=== PATIENT | female | born 1970 | race Caucasian/White ===

== ENCOUNTER → 2016-05-10 | Outpatient (CLI) | payer BC ==
[2016-05-10 11:19] LABS: CH 32.3; CHCM 34.8; HCT 45.3 % (34.0-46.0); HDW 2.63; HGB 15.1 gm/dL (11.4-16.0); MCHC 33.3 g/dL (31.0-37.0); MCV 93.3 fL (80.0-100.0); Mean Platelet Volume 8.4; RBC 4.86 m/uL (3.80-5.40); RDW 13.1 % (11.5-15.5); WBC 5.9 k/uL (3.8-10.6)
[2016-05-10 11:24] LABS: Partial Thromboplastin Time 23.8 sec (22.0-30.0); Prothrombin Time 10.4 sec (9.0-12.0)
[2016-05-10 11:51] LABS: ALT 37 U/L (9-52); AST 25 U/L (14-36); Alkaline Phosphatase 82 U/L (38-126); Anion Gap 12 mmol/L; Blood Urea Nitrogen 23 mg/dL (7-17); Calcium 9.8 mg/dL (8.4-10.2); Carbon Dioxide 29 mmol/L (22-30); Chloride 103 mmol/L (98-107); Cholesterol 201 mg/dL (<200); Glucose 108 mg/dL (74-99); HDL Cholesterol 51 mg/dL (40-60); Iron 108 ug/dL (37-170); Magnesium 2.1 mg/dL (1.6-2.3); Non-African American GFR(MDRD) >60 (>60 ml/min/1.73 sqM); Phosphorous 4.6 mg/dL (2.5-4.5); Potassium 4.9 mmol/L (3.5-5.1); Sodium 144 mmol/L (137-145); Total Bilirubin 0.5 mg/dL (0.2-1.3); Total Protein 7.2 g/dL (6.3-8.2); Triglycerides 137 mg/dL (<150)
[2016-05-10 11:58] LABS: Hemoglobin A1C 6.1 % (4.2-6.1)
[2016-05-10 12:02] LABS: % Iron Saturation 33.9 % (20-50); Prealbumin 27 mg/dL (18-36); Total Iron Binding Capacity 319 ug/dL (265-497)
[2016-05-10 13:03] LABS: Vitamin B12 447 pg/mL (239-931)
[2016-05-12 17:35] LABS: Selenium 129 mcg/L (63-160)
== END | disposition home or self-care (01) ==
LOC: LABWHC1 10:33
PROVIDERS: ATTEND Surgery Plastic and Reconstructive Surgery
DX: D50.8 Other iron deficiency anemias (principal); E89.1 Postprocedural hypoinsulinemia; E21.1 Secondary hyperparathyroidism, not elsewhere classified; E44.0 Moderate protein-calorie malnutrition; E55.9 Vitamin D deficiency, unspecified; N19 Unspecified kidney failure; K50.90 Crohn's disease, unspecified, without complications; K76.9 Liver disease, unspecified; E66.01 Morbid (severe) obesity due to excess calories
CPT/HCPCS: 36415; 80053; 80061; 82306; 82525; 82607; 82728; 82746; 83036; 83540; 83550; 83735; 83970; 84100; 84134; 84255; 84425; 84443; 84590; 84630; 85027; 85610; 85730

== ENCOUNTER → 2016-05-12 | Outpatient (CLI) | payer BC ==
--- NOTE | 2016-05-22 20:48 | P.PN ---
Progress Note - Text DATE OF SERVICE: 05/12/2016. CHIEF COMPLAINT: Follow-up sleeve gastrectomy. HISTORY OF PRESENT ILLNESS: Lisa Vázquez is a 45-year-old female who is status post sleeve gastrectomy from 08/14/2015. She is on the verge of being 8 to 9 months out. Her highest weight for her 5 feet 2-1/4 inches frame was 217 pounds. Today she comes in weighing 185 pounds. [place] body weight is 135 pounds. She has only maintained a 32 pound weight loss. Body mass index was reduced from 39.5 down to 33.7. She has lost approximately 4 pounds in roughly 3 to 4 weeks. She also tried doing the two week protein diet. However, she has been taking inadequate abundance of protein. Now she presents for further evaluation and management. Incidentally, she is no longer on any medications related to her blood sugars. Her insulin requirements are now resolved. Now she presents for further evaluation and management. PAST MEDICAL HISTORY: 1. Diabetes, type 2. 2. Gastroesophageal reflux disease. 3. Dyslipidemia. 4. Hypertension. 5. Vertigo. 6. Menopause. 7. Restless leg syndrome. 8. Anxiety. 9. Obstructive sleep apnea. PAST SURGICAL HISTORY: 1. Uterine ablation. 2. Bilateral breast reduction. 3. Left breast lumpectomy. 4. D&C. MEDICATIONS: 1. Effexor. 2. Zantac. 3. Nystatin Powder. 4. Multivitamin. 5. Folic acid. 6. Biotin. ALLERGIES: Note. SOCIAL HISTORY: Lifelong nontobacco user. Has intermittent alcohol use. FAMILY HISTORY: Pertinent for diabetes type 2. No reports of ulcerative colitis or Crohn disease. REVIEW OF SYSTEMS: CONSTITUTIONAL: [place] body weight of 135 pounds. Highest weight of 217 pounds. She weighs 185 pounds. She is 50 pounds overweight. She has lost 32 pounds. Percent excess weight loss is 39% in approximately 9 months. Body mass index reduced and 39.5 down to 33.7. ENDOCRINE: Resolved diabetes type 2. No reports of active thyroid disorder to her knowledge. GASTROINTESTINAL: Gastroesophageal reflux disease. MUSCULOSKELETAL: Has diffuse osteoarthritis. RESPIRATORY:Resolved obstructive sleep apnea. HEENT: No troubles with vision or hearing. CARDIOVASCULAR: History of dyslipidemia as well as hypertension. NEURO: No reports of stroke or seizure disorder. PSYCH: History of anxiety including depression. HEMATOLOGIC: No personal history of deep venous thromboembolic event. PHYSICAL EXAM: VITAL SIGNS: 98.2, 88, 14, 121/78; 5 feet 2-1/4 inches frame is 185 pounds. Body mass index is 33.7. ABDOMEN: No palpable incisional hernias. Obese, soft, nontender. GENERAL: Well-developed, pleasant female in no acute distress. CARDIOVASCULAR: Regular rate, regular rhythm. HEENT: No scleral icterus. Extraocular muscles grossly intact. Moist buccal mucosa. NECK: Supple without lymphadenopathy. CHEST: Nonlabored respirations. MUSCULOSKELETAL: No clubbing, cyanosis, or edema. NEURO: No focal or lateralizing signs. PSYCH: Appropriate affect. Alert and oriented to person, place and time. LABS: Bariatric metabolic panel was reviewed, demonstrating hemoglobin normal at 15.1. INR normal at 1.0. BUN was elevated at 23. Glucose elevated at 108. Hemoglobin A1c is now down from 7.6 down to 6.1. Phosphorus elevated at 4.6. Cholesterol elevated at 201. LDL elevated at 123. Lipase elevated, TSH suppressed at 0.4102. Trace elements within normal limits. ASSESSMENT: 1. Morbid obesity due to excess calories. 2. Body mass index reduced from 39.5 down to 33.7. 3. Diabetes type 2, [id number], improved. 4. Chronic constipation. 5. Panniculitis. 6. Obstructive sleep apnea, chronic, improved. 7. Hypertension without congestive heart failure. 8. Osteoarthritis of the bilateral knees secondary to morbid obesity. 9. Osteoarthritis of the lower back secondary to morbid obesity. 10. Osteoarthritis of the bilateral hips secondary to morbid obesity. 11. Medical noncompliance to dietary regimen following bariatric procedure. 12. Dietary surveillance and counseling. 13. Status post sleeve gastrectomy. 14. Medical noncompliance bariatric regimen. PLAN: 1. On review of her dietary history she is often taking moderate amount of carbohydrates including from fructose and fruit sugars. Her presentation and difficulty with her initial blood sugars are highly suspicious for insulin resistance. 2. I have asked her to adjust her diet whereby she will do carbohydrate restriction of no more than 100 grams of carbs daily. 3. Recommend at least 25 grams fiber daily to also help with her blood sugar spikes. 4. Alternatives to a 2 week protein diet also includes low carbohydrates intake of 20 grams. 5. I have recommended follow-up in approximately 4 weeks. ADDENDUM: With her history of suppressed TSH, she is at risk for her hyperthyroidism which will explain her hair loss despite her nutritional intake.
== END | disposition home or self-care (01) ==
CPT/HCPCS: 99211

== ENCOUNTER → 2016-06-09 | Outpatient (CLI) | payer BC ==
[2016-06-09 09:52] VITALS: BP 136/79; PULSE 94; RESP 16; TEMP 98.3; BMI 32.5
--- NOTE | 2016-07-31 19:55 | P.PN ---
Progress Note - Text DATE OF SERVICE: 06/09/2016 CHIEF COMPLAINT: Followup sleeve gastrectomy. HISTORY OF PRESENT ILLNESS: Lisa Vázquez is a 45-year-old female, status post sleeve gastrectomy on 08/14/2015. At her height of 5 feet 2-1/4 inch frame she had weighed as much as 217 pounds. Today she comes in weighing 179 pounds. Her ideal body weight is 135 pounds. She has lost 38 pounds. Percent excess weight loss is 46% after 9 to 10 months. She has had some struggles with weight loss, including with her diet. After a close bariatric followup, she had has lost 6 pounds in a month. Body mass index is reduced from 39.5 down to 32.6. Total BMI point reduction is 7 points. At present, she is only 44 pounds overweight. She reports complete resolution of her diabetes. Separately, she reports moderate panniculitis. Now she presents for further evaluation and management. PAST MEDICAL HISTORY: 1. Diabetes type 2, not insulin dependent, resolved. 2. Gastroesophageal reflux disease. 3. Dyslipidemia. 4. Hypertension. 5. Vertigo. 6. Menopause. 7. Restless leg syndrome. 8. Anxiety. 9. Obstructive sleep apnea. PAST SURGICAL HISTORY: 1. Uterine ablation. 2. Bilateral breast reduction. 3. Left breast lumpectomy. 4. D&C. 5. Status post sleeve gastrectomy. MEDICATIONS: 1. Folic acid. 2. Biotin. 3. Effexor. 4. Zantac. 5. Nystatin powder. ALLERGIES: Note. SOCIAL HISTORY: Lifelong nontobacco user. Has intermittent alcohol use. FAMILY HISTORY: Pertinent for diabetes type 2. No reports of ulcerative colitis or Crohn disease. REVIEW OF SYSTEMS: CONSTITUTIONAL: Recent weight loss was 6 pounds in one month. Total weight loss of 38 pounds in 10 months. Body mass index reduced from 39.5 down to 32.6. Percent excess weight loss of 46%. [place] body weight of 135 pounds. ENDOCRINE: Resolved diabetes type 2. No reports of active thyroid disorder to her knowledge. GASTROINTESTINAL: History of gastroesophageal reflux disease controlled with Zantac. MUSCULOSKELETAL: Has diffuse osteoarthritis. RESPIRATORY:Resolved obstructive sleep apnea. HEENT: No troubles with vision or hearing. CARDIOVASCULAR: History of dyslipidemia as well as hypertension. NEURO: No reports of stroke or seizure disorder. PSYCH: History of anxiety including depression. HEMATOLOGIC: No personal history of deep venous thromboembolic event. PHYSICAL EXAM: VITAL SIGNS: 98.3, 94, 16, 136/79, 179 pounds, 5 feet 2-1/4 inch frame, body mass index 32.6. ABDOMEN: Soft. No palpable incisional hernias. Pannus extends over pubis by 6 cm with mild hyperemia consistent with panniculitis. GENERAL: Well-developed, pleasant female in no acute distress. CARDIOVASCULAR: Regular rate, regular rhythm. HEENT: No scleral icterus. Extraocular muscles grossly intact. Moist buccal mucosa. NECK: Supple without lymphadenopathy. CHEST: Nonlabored respirations. MUSCULOSKELETAL: No clubbing, cyanosis, or edema. NEURO: No focal or lateralizing signs. PSYCH: Appropriate affect. Alert and oriented to person, place and time. LABS: Bariatric metabolic panel was reviewed, consistent with BUN elevated at 23. Glucose was elevated at 108. Hemoglobin A1c was moderate reduced from 7.6 down to 6.1. Phosphorus was elevated at 4.6. Cholesterol elevated at 201. LDL elevated at 123. Thyroid-stimulating hormone was suppressed at 0.412. ASSESSMENT: 1. Morbid obesity due to excess calories. 2. Body mass index reduced from 39.5 down to 32.6. 3. Diabetes type 2, [id number], improved. 4. Chronic constipation. 5. Panniculitis. 6. Obstructive sleep apnea, chronic, improved. 7. Hypertension without congestive heart failure. 8. Osteoarthritis of the bilateral knees secondary to morbid obesity. 9. Osteoarthritis of the lower back secondary to morbid obesity. 10. Osteoarthritis of the bilateral hips secondary to morbid obesity. 11. Medical noncompliance to dietary regimen following bariatric procedure. 12. Dietary surveillance and counseling. 13. Status post sleeve gastrectomy. 14. Medical noncompliance bariatric regimen. 15. Insulin resistance. PLAN: 1. She had responded well to a very strict low-carb diet. This confirms her insulin resistance. 2. We have reviewed her labs whereby her thyroid stimulating hormone is suppressed. Will re-evaluate. 3. On exam, she has panniculitis and additional prescription for nystatin powder is written on her behalf. 4. She is evaluating for a panniculectomy; however, she still will benefit from additional weight loss. 5. Recommend followup at year anniversary for July 2016.
== END | disposition home or self-care (01) ==
LOC: BARWHC3 09:43
PROVIDERS: ATTEND Surgery Plastic and Reconstructive Surgery
DX: Z48.815 Encounter for surgical aftercare following surgery on the digestive system (principal); Z79.899 Other long term (current) drug therapy; E66.01 Morbid (severe) obesity due to excess calories; Z68.32 Body mass index [BMI] 32.0-32.9, adult; K59.09 Other constipation; M79.3 Panniculitis, unspecified; I10 Essential (primary) hypertension; M17.0 Bilateral primary osteoarthritis of knee; M16.0 Bilateral primary osteoarthritis of hip; M47.816 Spondylosis without myelopathy or radiculopathy, lumbar region; Z98.84 Bariatric surgery status; Z91.11 Patient's noncompliance with dietary regimen; E88.81 Metabolic syndrome and other insulin resistance; K21.9 Gastro-esophageal reflux disease without esophagitis; F41.9 Anxiety disorder, unspecified; F32.9 Major depressive disorder, single episode, unspecified
CPT/HCPCS: 99211

== ENCOUNTER → 2017-05-09 | Outpatient (CLI) | payer BC ==
--- NOTE | 2017-05-10 11:42 | MM ---
Reason for exam: screening (asymptomatic). Last mammogram was performed 2 years and 9 months ago. History: Family history of premenopausal breast cancer in grandmother. Reductions of both breasts, April 12, 2005. Physical Findings: A clinical breast exam by your physician is recommended on an annual basis and results should be correlated with mammographic findings. MG 3D Screening Mammo W/Cad Bilateral CC and MLO view(s) were taken. Prior study comparison: August 12, 2014, bilateral MG diagnostic mammo w CAD GRADY. There are scattered fibroglandular densities. No suspicious abnormality. No significant changes when compared with prior studies. ASSESSMENT: Negative, BI-RAD 1 RECOMMENDATION: Routine screening mammogram of both breasts in 1 year.
== END | disposition home or self-care (01) ==
LOC: RADMAMWWP 11:18
PROVIDERS: ATTEND Obstetrics & Gynecology
DX: Z12.31 Encounter for screening mammogram for malignant neoplasm of breast (principal)
CPT/HCPCS: 77063; 77067

== ENCOUNTER → 2017-08-22 | Outpatient (CLI) | payer BC ==
[2017-08-22 10:43] LABS: Basophils % (A) 1 %; Eosinophils # (A) 0.1 k/uL (0-0.7); Eosinophils % (A) 2 %; HCT 44.4 % (34.0-46.0); Lymphocytes # (A) 2.4 k/uL (1.0-4.8); Lymphocytes % (A) 41 %; MCH 30.6 pg (25.0-35.0); MCHC 33.9 g/dL (31.0-37.0); MCV 90.4 fL (80.0-100.0); Monocytes # (A) 0.3 k/uL (0-1.0); Monocytes % (A) 5 %; Neutrophils # (A) 2.9 k/uL (1.3-7.7); Neutrophils % (A) 49 %; Platelet Count 240 k/uL (150-450); RBC 4.91 m/uL (3.80-5.40); RDW 12.8 % (11.5-15.5); WBC 5.8 k/uL (3.8-10.6)
[2017-08-22 11:16] LABS: ALT 27 U/L (9-52); AST 19 U/L (14-36); Albumin 4.3 g/dL (3.5-5.0); Alkaline Phosphatase 87 U/L (38-126); Anion Gap 13 mmol/L; Blood Urea Nitrogen 18 mg/dL (7-17); Calcium 9.6 mg/dL (8.4-10.2); Carbon Dioxide 28 mmol/L (22-30); Chloride 105 mmol/L (98-107); Cholesterol 197 mg/dL (<200); Creatine Kinase 42 U/L (30-135); Glucose 155 mg/dL (74-99); HDL Cholesterol 54 mg/dL (40-60); LDL Cholesterol,Calculated 118 mg/dL (0-99); Potassium 4.2 mmol/L (3.5-5.1); Sodium 146 mmol/L (137-145); Total Bilirubin 0.4 mg/dL (0.2-1.3); Total Protein 6.9 g/dL (6.3-8.2); Triglycerides 127 mg/dL (<150)
[2017-08-22 15:57] LABS: Iron Saturation 32.81 (12.00-45.00)
[2017-08-22 16:06] LABS: Vitamin D 25 Hydroxy 47.5 ng/mL (30.0-100.0)
[2017-08-24 06:37] LABS: Vitamin E (Alpha Tocopherol) 1261 ug/dL (500-1800)
[2017-08-24 06:38] LABS: Vitamin A 54 ug/dL (38-106)
[2017-08-24 06:52] LABS: Vitamin B1 54 ug/L (38-122)
== END | disposition home or self-care (01) ==
LOC: LABWHC1 09:49
PROVIDERS: ATTEND Family Medicine
DX: E78.00 Pure hypercholesterolemia, unspecified (principal)
CPT/HCPCS: 36415; 80053; 80061; 82306; 82550; 82607; 82728; 83540; 83550; 84425; 84446; 84590; 85025

== ENCOUNTER → 2017-09-04 | Outpatient (CLI) | payer BC ==
[2017-09-04 12:52] LABS: Blood Urea Nitrogen 10 mg/dL (7-17)
--- NOTE | 2017-09-04 14:36 | CT ---
EXAMINATION TYPE: CT abdomen pelvis w con DATE OF EXAM: 09/04/2017 HISTORY: Pelvic and low back pain CT DLP: 1637.6mGycm Automated Exposure Control for Dose Reduction was Utilized. CONTRAST: CT scan of the abdomen and pelvis is performed with oral and with IV Contrast, patient injected with 100 mL of Isovue 300. COMPARISON: CT abdomen and pelvis August 10, 2013. FINDINGS: LUNG BASES: No significant abnormality is appreciated. LIVER/GB: No significant abnormality is appreciated. PANCREAS: No significant abnormality is seen. SPLEEN: Spleen remains enlarged measuring 14.2 cm long axis axial image 20. ADRENALS: No significant abnormality is seen. KIDNEYS: No significant abnormality is seen. BOWEL: There is interval gastric sleeve surgery noted. Oral contrast reaches level of distal sigmoid colon. There are few diverticula scattered throughout the colon. There is moderate wall thickening wi th mild to moderate ill-defined fluid and fat stranding surrounding proximal sigmoid colon in the lef t upper pelvis near axial image 69. CT findings are consistent with acute diverticulitis at this leve l. No well-formed fluid collection or abscess is seen. Normal-appearing appendix is seen from base of cecum. UTERUS/ADNEXA: Anteverted uterus is present. LYMPH NODES: No greater than 1cm abdominal or pelvic lymph nodes are appreciated. OSSEOUS STRUCTURES: No significant abnormality is seen. OTHER: No significant additional abnormality is seen. IMPRESSION: CT findings consistent with a mild to moderate acute diverticulitis involving the proxima l sigmoid colon in the left upper pelvis. No free air or well-formed drainable abscess is seen.
== END | disposition home or self-care (01) ==
LOC: RADCTMAIN 11:58
PROVIDERS: ATTEND Family Medicine
DX: K57.30 Diverticulosis of large intestine without perforation or abscess without bleeding (principal)
CPT/HCPCS: 82565; 84520; 74177; 36415; Q9967

== ENCOUNTER 2018-02-21 06:43 | Day surgery (SDC) | payer BC ==
[2018-02-19 09:54] VITALS: BMI 35.9
[~2018-02-21 06:43] MED LIST: HYDROmorphone 1 MG/ML 1 ML SYRINGE IVP PRN; LACTATED RINGERS 1,000 ML IV SCH
[2018-02-21] MEDS ORDERED: LIDOCAINE 1% 20 ML VIAL (10MG/ML) FOR IV START INTRADERMA ONE (07:16)
[2018-02-21] MEDS ORDERED: ONDANSETRON 4 MG/2 ML VIAL IVP ONE (07:17)
[2018-02-21 07:19] LABS: Glucose,Whole Blood 147 mg/dL (75-99)
[2018-02-21 07:20] VITALS: TEMP 97
[2018-02-21] MEDS ORDERED: PROPOFOL 10 MG/ML 20 ML VIAL IV ONE (07:55)
--- NOTE | 2018-02-21 08:17 | P.PCN ---
Date of Procedure: 02/21/18 Procedure(s) Performed: BRIEF HISTORY: Patient is a 47-year-old pleasant-white female, scheduled for an elective colonoscopy as a part of value should of intermittent rectal bleeding. PROCEDURE PERFORMED: Colonoscopy with snare polypectomy. PREOPERATIVE DIAGNOSIS: Rectal bleeding. IV sedation per Anesthesia. PROCEDURE: After informed consent was obtained, the patient, was brought into the endoscopy unit. IV sedation was administered by Anesthesia under continuous monitoring. Digital rectal examination was normal. Initially the Olympus CF- 160 flexible video colonoscope was then inserted in the rectum, gradually advanced into the cecum without any difficulty. Careful examination was performed as the scope was gradually being withdrawn. Ileocecal valve and the appendiceal orifice were visualized and appeared normal. Prep was excellent. In the base of the cecum there was a 7 mm sessile polyp removed by snare polypectomy. There was a 1 cm polyp in the ascending colon that was removed by snare polypectomy. Mucosa of the cecum, ascending colon, transverse colon, descending colon, sigmoid colon, and rectum appeared normal. Retroflexion was performed in the rectum and small internal hemorrhoids were seen. The patient tolerated the procedure well. IMPRESSION: 7 mm sessile cecal polyp status post polypectomy 1 cm ascending colon polyp status post snare polypectomy. Small internal hemorrhoids RECOMMENDATIONS: Findings of this examination were discussed with the patient as well as her family. She was advised to follow with the biopsy results. If the biopsy shows adenoma, she can have a repeat colonoscopy in 3 years from now..
[2018-02-21 08:40] VITALS: BP 146/87; PULSE 63; RESP 18
== END 2018-02-21 08:51 | disposition home or self-care (01) ==
LOC: ORWHC2ENDO 06:43
PROVIDERS: ATTEND Internal Medicine Gastroenterology
DX: D12.2 Benign neoplasm of ascending colon (principal); K62.5 Hemorrhage of anus and rectum; K63.5 Polyp of colon; K64.8 Other hemorrhoids; G47.33 Obstructive sleep apnea (adult) (pediatric); E11.9 Type 2 diabetes mellitus without complications; I10 Essential (primary) hypertension; E78.5 Hyperlipidemia, unspecified; Z88.8 Allergy status to other drugs, medicaments and biological substances; Z79.84 Long term (current) use of oral hypoglycemic drugs; Z79.899 Other long term (current) drug therapy
CPT/HCPCS: 81025; 88305; 45385; J2405; J2704

== ENCOUNTER 2018-05-31 17:43 | Emergency (ER) | payer BC ==
[2018-05-31 17:51] VITALS: TEMP 98.3
[2018-05-31] MEDS ORDERED: CLINDAMYCIN 600 MG in DEXTROSE 5% IN WATER 50 ML IVPB STA ×2 (18:23)
[2018-05-31] MEDS ORDERED: MORPHINE SULFATE 4 MG/ML SYRINGE IVP STA ×2 (18:25→20:23)
[2018-05-31] MEDS ORDERED: ONDANSETRON 4 MG/2 ML VIAL IVP STA (18:25)
[2018-05-31 18:54] LABS: Basophils # (A) 0.1 k/uL (0-0.2); Basophils % (A) 1 %; Eosinophils # (A) 0.2 k/uL (0-0.7); Eosinophils % (A) 1 %; HCT 49.3 % (34.0-46.0); HGB 16.5 gm/dL (11.4-16.0); Lymphocytes # (A) 3.4 k/uL (1.0-4.8); Lymphocytes % (A) 31 %; MCH 31.3 pg (25.0-35.0); MCHC 33.5 g/dL (31.0-37.0); MCV 93.3 fL (80.0-100.0); Mean Platelet Volume 7.2; Monocytes # (A) 0.5 k/uL (0-1.0); Monocytes % (A) 4 %; Neutrophils # (A) 6.8 k/uL (1.3-7.7); Neutrophils % (A) 62 %; Platelet Count 279 k/uL (150-450); RBC 5.28 m/uL (3.80-5.40); RDW 12.7 % (11.5-15.5)
[2018-05-31 19:15] LABS: Anion Gap 10 mmol/L; Blood Urea Nitrogen 16 mg/dL (7-17); Carbon Dioxide 28 mmol/L (22-30); Chloride 104 mmol/L (98-107); Glucose 147 mg/dL (74-99); Potassium 4.5 mmol/L (3.5-5.1); Sodium 142 mmol/L (137-145)
--- NOTE | 2018-05-31 19:23 | ED ---
General Adult HPI - General Chief complaint: Skin/Abscess/Foreign Body Stated complaint: Swollen face- sent by DR Time Seen by Provider: 05/31/18 18:13 Source: patient, RN notes reviewed Mode of arrival: ambulatory Limitations: no limitations - History of Present Illness Initial comments: 47-year-old female presents emergency Department chief complaint of left-sided facial swelling. Patient states that she had dental work on the left upper side running and this morning. Patient states that she was getting numb and states that she had increase in pain at that time. Patient states almost 1520 minutes after she administered swelling. Patient states her dentist told her that he may have struck her plexus and causing a hematoma. Patient states that she had increasing pain throughout the day was not sent home with pain medication seen by PCPs office and felt that there was some crackling towards her jaw and concern for subcutaneous air or maxillary infiltrate. She states that she cannot see her left eye secondary to swelling. - Related Data Home Medications Medication Instructions Recorded Confirmed Venlafaxine HCl [Effexor Xr] 225 mg PO QAM 04/29/15 05/31/18 ALPRAZolam [Xanax] 0.25 mg PO DAILY PRN 02/19/18 05/31/18 Acetaminophen [Tylenol] 325 mg PO Q4H PRN 02/19/18 05/31/18 Meclizine HCl 25 mg PO DAILY PRN 02/19/18 05/31/18 metFORMIN HCL 1,000 mg PO BID 02/19/18 05/31/18 Amoxic-Pot Clav 875-125Mg 1 tab PO Q12HR 05/31/18 05/31/18 [Augmentin 875-125] Previous Rx's Medication Instructions Recorded Clindamycin HCl 300 mg PO Q8HR #30 cap 05/31/18 HYDROcodone/APAP 7.5-325MG [[place] 1 tab PO Q6HR PRN 3 Days #12 tab 05/31/18 7.5-325] Allergies Allergy/AdvReac Type Severity Reaction Status Date / Time milk AdvReac CONGESTIONS, Verified 05/31/18 18:25 SINUS DRAINAGE phenazopyridine AdvReac Nausea & Verified 05/31/18 18:25 [From Pyridium] Vomiting Review of Systems ROS Statement: Those systems with pertinent positive or pertinent negative responses have been documented in the HPI. ROS Other: All systems not noted in ROS Statement are negative. Past Medical History Past Medical History: Diabetes Mellitus, GERD/Reflux, Pneumonia, Sleep Apnea/ CPAP/BIPAP Additional Past Medical History / Comment(s): SEIZURE X1 ([employer]), PCOS. , Vertigo, RLS. , PNEUMONIA (MAR 2015),does not use BI PAP MACHINE History of Any Multi-Drug Resistant Organisms: None Reported Past Surgical History: Bariatric Surgery, Breast Surgery, Uterine Ablation Additional Past Surgical History / Comment(s): Breast Reduction; Lump Removed from LT breast, BENIGN. D&C., COLONOSCOPY, EGD (05/2015). Gastric Sleeve 08/15/15 Past Anesthesia/Blood Transfusion Reactions: Previous Problems w/ Anesthesia, Family History of Problems w/ Anesthesia, Motion Sickness Additional Past Anesthesia/Blood Transfusion Reaction / Comment(s): Takes a long time to come of anesthesia X1 with breast reduction surgery. (REFUSES BLOOD PRODUCTS)-personal preference. DTR has PONV Past Psychological History: Anxiety, Depression Smoking Status: Never smoker Past Alcohol Use History: Occasional Past Drug Use History: None Reported - Past Family History Mother Additional Family Medical History / Comment(s): Benign tumor in uterus, removed. Father Family Medical History: Cancer, CVA/TIA, Diabetes Mellitus Additional Family Medical History / Comment(s): leukemia of spleen, hemchromatosis (to much iron in blood), neuropathy, back surgery fushions. MELANOMA. General Exam Limitations: no limitations General appearance: alert, in no apparent distress Head exam: Present: atraumatic, normocephalic, normal inspection Eye exam: Present: PERRL, EOMI, periorbital swelling (Moderate left-sided unable to open left eye). Absent: normal appearance, scleral icterus, conjunctival injection ENT exam: Present: mucous membranes moist, TM's normal bilaterally, normal external ear exam, other (Moderate left-sided facial swelling). Absent: normal exam, normal oropharynx Neck exam: Present: normal inspection, full ROM. Absent: tenderness, meningismus, lymphadenopathy Respiratory exam: Present: normal lung sounds bilaterally. Absent: respiratory distress, wheezes, rales, rhonchi, stridor Cardiovascular Exam: Present: regular rate, normal rhythm, normal heart sounds. Absent: systolic murmur, diastolic murmur, rubs, gallop, clicks Skin exam: Present: warm, dry, intact, normal color. Absent: rash Course Vital Signs 05/31/18 17:47 Temperature 98.3 F Pulse Rate 77 Respiratory 18 Rate Blood Pressure 134/82 O2 Sat by Pulse 98 Oximetry Medical Decision Making - Medical Decision Making 47-year-old female presented for left-sided facial swelling after dental procedure today. Patient did have lab work, CT. Shows extensive soft tissue air on the left. I did discuss the case with on-call oral surgeon Dr. Gonzalez was states this is most likely just from the procedure. He did recommend patient continue clindamycin 300 mg 3 times a day at home and to follow-up. She did advise her to sleep at a minimum 30 upright. Patient will be discharged with pain medication return parameters were discussed. - Lab Data Result diagrams: 05/31/18 18:05 05/31/18 18:05 Lab Results 05/31/18 05/31/18 Range/Units 18:05 18:05 WBC 11.0 H (3.8-10.6) k/uL RBC 5.28 (3.80-5.40) m/uL Hgb 16.5 H (11.4-16.0) gm/dL Hct 49.3 H (34.0-46.0) % MCV 93.3 (80.0-100.0) fL MCH 31.3 (25.0-35.0) pg MCHC 33.5 (31.0-37.0) g/dL RDW 12.7 (11.5-15.5) % Plt Count 279 (150-450) k/uL Neutrophils % 62 % Lymphocytes % 31 % Monocytes % 4 % Eosinophils % 1 % Basophils % 1 % Neutrophils # 6.8 (1.3-7.7) k/uL Lymphocytes # 3.4 (1.0-4.8) k/uL Monocytes # 0.5 (0-1.0) k/uL Eosinophils # 0.2 (0-0.7) k/uL Basophils # 0.1 (0-0.2) k/uL Sodium 142 (137-145) mmol/L Potassium 4.5 (3.5-5.1) mmol/L Chloride 104 (98-107) mmol/L Carbon Dioxide 28 (22-30) mmol/L Anion Gap 10 mmol/L BUN 16 (7-17) mg/dL Creatinine 0.61 (0.52-1.04) mg/dL Est GFR (CKD-EPI)AfAm >90 (>60 ml/min/1.73 sqM) Est GFR (CKD-EPI)NonAf >90 (>60 ml/min/1.73 sqM) Glucose 147 H (74-99) mg/dL Calcium 10.0 (8.4-10.2) mg/dL Disposition Clinical Impression: Swelling of left side of face, Soft tissue emphysema, Pain, dental Disposition: HOME SELF-CARE Condition: Stable Instructions (If sedation given, give patient instructions): Toothache (ED) Additional Instructions: Please return to the Emergency Department if symptoms worsen or any other concerns. Prescriptions: Clindamycin HCl 300 mg PO Q8HR #30 cap HYDROcodone/APAP 7.5-325MG [[place] 7.5-325] 1 tab PO Q6HR PRN 3 Days #12 tab PRN Reason: Pain Is patient prescribed a controlled substance at d/c from ED?: Yes When asked, does pt state using other controlled substances?: No If prescribed controlled substance>3 days was MAPS reviewed?: Prescribed <3 Days If opioid is for acute pain is fill amount 7 days or less?: Yes If Rx opioid, was Start Talking consent form obtained?: Yes Referrals: Glynn Mueller MD [Primary Care Provider] - 1-2 days Jeff Gonzalez DDS [STAFF PHYSICIAN] - 1-2 days Time of Disposition: 20:30
--- NOTE | 2018-05-31 19:52 | CT ---
EXAMINATION TYPE: CT facial bones w con DATE OF EXAM: 05/31/2018 COMPARISON: None HISTORY: Swelling of LT side of face. PT states swelling started after numbing injection by dentist f or a procedure CT DLP: 477.1 mGycm Automated exposure control for dose reduction was used. CONTRAST: CT scan of the facial bones is performed with IV Contrast, patient injected with 300 mL of Isovue 300 . TECHNIQUE: CT scan of the sinuses is performed without contrast, axial images are obtained, coronal r eformatted images are also reviewed. There is extensive soft tissue air on the left side of the face extending into the periorbital region left temporal region and left submandibular region. I see no discrete fluid collection. The mandibul ar ring is intact. The maxilla is intact. There is a large mucus retention cyst right maxillary sinus . The orbital margins are intact. There is no evidence of retro-orbital mass. There is mild mucosal t hickening at the floor of the left maxillary sinus. I see no pathologic enhancement. IMPRESSION: Extensive left-sided soft tissue air. The source of the areas not demonstrated. No fracture. No evidence of an abscess. Maxillary sinusitis.
[2018-05-31 20:39] VITALS: BP 128/77; PULSE 72; RESP 16
== END 2018-05-31 20:39 | disposition home or self-care (01) ==
LOC: EC 17:43
DX: T81.82XA Emphysema (subcutaneous) resulting from a procedure, initial encounter (principal); K08.89 Other specified disorders of teeth and supporting structures; E11.9 Type 2 diabetes mellitus without complications; F32.9 Major depressive disorder, single episode, unspecified; F41.9 Anxiety disorder, unspecified; Z88.8 Allergy status to other drugs, medicaments and biological substances; Z91.011 Allergy to milk products; Z79.84 Long term (current) use of oral hypoglycemic drugs; Z79.899 Other long term (current) drug therapy; Z87.01 Personal history of pneumonia (recurrent)
CPT/HCPCS: 36415; 80048; 85025; 87040; 70487; 99284; 96365; 96375 ×2; 96376; J2270; J2405; Q9967

== ENCOUNTER → 2018-11-28 | Outpatient (CLI) | payer BC ==
--- NOTE | 2018-11-29 13:53 | MM ---
Reason for exam: screening (asymptomatic). Last mammogram was performed 1 year and 7 months ago. History: Family history of premenopausal breast cancer in grandmother. Reductions of both breasts, April 12, 2005. Physical Findings: A clinical breast exam by your physician is recommended on an annual basis and results should be correlated with mammographic findings. MG 3D Screening Mammo W/Cad Bilateral CC and MLO view(s) were taken. Prior study comparison: May 09, 2017, bilateral MG 3d screening mammo w/cad. August 12, 2014, bilateral MG diagnostic mammo w CAD GRADY. There are scattered fibroglandular densities. Benign appearing bilateral calcifications. No significant changes when compared with prior studies. ASSESSMENT: Benign, BI-RAD 2 RECOMMENDATION: Routine screening mammogram of both breasts in 1 year.
== END | disposition home or self-care (01) ==
LOC: RADMAMWWP 08:23
PROVIDERS: ATTEND Obstetrics & Gynecology
DX: Z12.31 Encounter for screening mammogram for malignant neoplasm of breast (principal); Z80.3 Family history of malignant neoplasm of breast
CPT/HCPCS: 77063; 77067

== ENCOUNTER 2020-02-23 11:19 | Emergency (ER) | payer BC ==
[2020-02-23 11:31] VITALS: RESP 18; TEMP 98.5
[2020-02-23] MEDS ORDERED: SODIUM CHLORIDE 0.9% 1,000 ML IV STA (11:55)
[2020-02-23] MEDS ORDERED: KETOROLAC 15 MG/ML 1 ML VIAL IVP STA (11:55)
--- NOTE | 2020-02-23 11:57 | ED ---
Abdominal Pain HPI - General Chief Complaint: Abdominal Pain Stated Complaint: abdominal pain Time Seen by Provider: 02/23/20 11:33 Source: patient Mode of arrival: ambulatory Limitations: no limitations - History of Present Illness Initial Comments: Patient is a 49-year-old female presenting to the emergency Department with complaints of left lower quadrant pain that started last night. She does have a history of diverticulitis and feels somewhat similar to that. She also has history of gastric sleeve and they did find some adhesions during that surgery. She states she noticed the pain early in the evening yesterday and she feels like it has been coming worse. She states when she has still the pain is tolerable but when she tries to move around the pain increases. She denies any fevers. She denies any nausea, vomiting. She states her stool is more loose than usual. There is no blood in the stool. She denies any chest pain, shortness of breath, cough. She is no further complaints at this time. Upon arrival to the ER her vitals are stable. - Related Data Home Medications Medication Instructions Recorded Confirmed Meclizine HCl 25 mg PO TID PRN 02/19/18 02/23/20 Canagliflozin/Metformin HCl 1 tab PO BID 02/23/20 02/23/20 [Invokamet 150-1,000 mg Tablet] Clotrimazole/Betameth Cream 1 applic TOPICAL BID 02/23/20 02/23/20 [Lotrisone] Dulaglutide [Trulicity] 1.5 mg SQ ACOSTA 02/23/20 02/23/20 Venlafaxine HCl ER [Effexor Xr] 225 mg PO DAILY 02/23/20 02/23/20 Previous Rx's Medication Instructions Recorded Amoxicillin/Potassium Clav 1 tab PO BID 7 Days #14 tab 02/23/20 [Augmentin 875-125 Tablet] Ketorolac [Toradol] 10 mg PO Q8HR #10 tab 02/23/20 Allergies Allergy/AdvReac Type Severity Reaction Status Date / Time milk AdvReac CONGESTIONS, Verified 02/23/20 13:03 SINUS DRAINAGE phenazopyridine AdvReac Nausea & Verified 02/23/20 13:03 [From Pyridium] Vomiting Review of Systems ROS Statement: Those systems with pertinent positive or pertinent negative responses have been documented in the HPI. ROS Other: All systems not noted in ROS Statement are negative. Past Medical History Past Medical History: Diabetes Mellitus, GERD/Reflux, Pneumonia, Sleep Apnea/CPAP/BIPAP Additional Past Medical History / Comment(s): SEIZURE X1 ([employer]), PC OS. , Vertigo, RLS. , PNEUMONIA (MAR 2015),does not use BI PAP MACHINE History of Any Multi-Drug Resistant Organisms: None Reported Past Surgical History: Bariatric Surgery, Breast Surgery, Uterine Ablation Additional Past Surgical History / Comment(s): Breast Reduction; Lump Removed from LT breast, BENIGN. D&C., COLONOSCOPY, EGD (05/2015). Gastric Sleeve 08/15/15 Past Anesthesia/Blood Transfusion Reactions: Previous Problems w/ Anesthesia, Family History of Problems w/ Anesthesia, Motion Sickness Additional Past Anesthesia/Blood Transfusion Reaction / Comment(s): Takes a long time to come of anesthesia X1 with breast reduction surgery. (REFUSES BLOOD PRODUCTS)-personal preference. DTR has PONV Past Psychological History: Anxiety, Depression Smoking Status: Former smoker Past Alcohol Use History: Occasional Past Drug Use History: None Reported - Past Family History Mother Additional Family Medical History / Comment(s): Benign tumor in uterus, removed. Father Family Medical History: Cancer, CVA/TIA, Diabetes Mellitus Additional Family Medical History / Comment(s): leukemia of spleen, hemchromatosis (to much iron in blood), neuropathy, back surgery fushions. MELANOMA. General Exam - General Exam Comments Initial Comments: GENERAL: Patient is well-developed and well-nourished. Patient is nontoxic and in no acute distress. HEAD: Atraumatic, normocephalic. EYES: Pupils equal round and reactive to light, extraocular movements intact, sclera anicteric, conjunctiva are normal. Eyelids were unremarkable. ENT: TMs normal, nares patent, oropharynx clear without exudates. Moist mucous membranes. NECK: Normal range of motion, supple without lymphadenopathy or JVD. LUNGS: Unlabored respirations. Breath sounds clear to auscultation bilaterally and equal. No wheezes rales or rhonchi. HEART: Regular rate and rhythm without murmurs, rubs or gallops. ABDOMEN: Tender to palpation of the left side of the abdomen, left lower quadrant. Soft, normoactive bowel sounds. No guarding, no rebound. No masses appreciated. : Deferred MUSCULOSKELETAL: Normal extremities with adequate strength and normal range of motion, no pitting or edema. No clubbing or cyanosis. NEUROLOGICAL: Patient is alert and oriented x 3. Motor and sensory are also intact. Cranial nerves II through XII grossly intact. Symmetrical smile. Normal speech, normal gait. PSYCH: Normal mood, normal affect. SKIN: Warm, Dry, normal turgor, no rashes or lesions noted. Limitations: no limitations Course Vital Signs 02/23/20 02/23/20 11:27 13:32 Temperature 98.5 F Pulse Rate 102 H 80 Respiratory 18 18 Rate Blood Pressure 134/87 134/86 O2 Sat by Pulse 99 Oximetry Medical Decision Making - Medical Decision Making Patient is a 49-year-old female here with left lower quadrant pain since yesterday. She does have a history of diverticulitis and this feels similar. Her vitals are stable. Labs revealed mild leukocytosis, lipase is normal, lactic acid is normal. Urine shows no evidence of infection, 4+ glucose, she does have history of diabetes. CT of the abdomen shows mild diverticulitis, no other acute abnormalities. Patient was given fluids and pain control has been resting comfortably. I discussed these findings with the patient. Patient will be started on Augmentin and I will also send her some Toradol for pain. Patient is stable for discharge. Strict return parameters were discussed with the patient and she verbalized understanding. Case discussed with Dr. Corbett. - Lab Data Result diagrams: 02/23/20 11:57 02/23/20 11:57 Lab Results 02/23/20 02/23/20 02/23/20 Range/Units 11:57 11:57 11:57 WBC 11.2 H (3.8-10.6) k/uL RBC 5.10 (3.80-5.40) m/uL Hgb 16.5 H (11.4-16.0) gm/dL Hct 48.7 H (34.0-46.0) % MCV 95.4 (80.0-100.0) fL MCH 32.4 (25.0-35.0) pg MCHC 34.0 (31.0-37.0) g/dL RDW 12.1 (11.5-15.5) % Plt Count 243 (150-450) k/uL Neutrophils % 59 % Lymphocytes % 32 % Monocytes % 5 % Eosinophils % 1 % Basophils % 1 % Neutrophils # 6.6 (1.3-7.7) k/uL Lymphocytes # 3.6 (1.0-4.8) k/uL Monocytes # 0.6 (0-1.0) k/uL Eosinophils # 0.1 (0-0.7) k/uL Basophils # 0.1 (0-0.2) k/uL Sodium 140 (137-145) mmol/L Potassium 4.2 (3.5-5.1) mmol/L Chloride 106 (98-107) mmol/L Carbon Dioxide 25 (22-30) mmol/L Anion Gap 9 mmol/L BUN 7 (7-17) mg/dL Creatinine 0.63 (0.52-1.04) mg/dL Est GFR (CKD-EPI)AfAm >90 (>60 ml/min/1.73 sqM) Est GFR (CKD-EPI)NonAf >90 (>60 ml/min/1.73 sqM) Glucose 112 H (74-99) mg/dL Plasma Lactic Acid Eliot (0.7-2.0) mmol/L Calcium 9.9 (8.4-10.2) mg/dL Total Bilirubin 0.6 (0.2-1.3) mg/dL AST 24 (14-36) U/L ALT 21 (4-34) U/L Alkaline Phosphatase 79 (38-126) U/L Total Protein 7.2 (6.3-8.2) g/dL Albumin 4.4 (3.5-5.0) g/dL Amylase 58 (30-110) U/L Lipase 151 (23-300) U/L Urine Color Light Yellow Urine Appearance Clear (Clear) Urine pH 6.0 (5.0-8.0) Ur Specific [place] >1.050 H (1.001-1.035) Urine Protein Negative (Negative) Urine Glucose (UA) 4+ H (Negative) Urine Ketones Trace H (Negative) Urine Blood Negative (Negative) Urine Nitrite Negative (Negative) Urine Bilirubin Negative (Negative) Urine Urobilinogen <2.0 (<2.0) mg/dL Ur Leukocyte Esterase Negative (Negative) 02/23/20 Range/Units 11:57 WBC (3.8-10.6) k/uL RBC (3.80-5.40) m/uL Hgb (11.4-16.0) gm/dL Hct (34.0-46.0) % MCV (80.0-100.0) fL MCH (25.0-35.0) pg MCHC (31.0-37.0) g/dL RDW (11.5-15.5) % Plt Count (150-450) k/uL Neutrophils % % Lymphocytes % % Monocytes % % Eosinophils % % Basophils % % Neutrophils # (1.3-7.7) k/uL Lymphocytes # (1.0-4.8) k/uL Monocytes # (0-1.0) k/uL Eosinophils # (0-0.7) k/uL Basophils # (0-0.2) k/uL Sodium (137-145) mmol/L Potassium (3.5-5.1) mmol/L Chloride (98-107) mmol/L Carbon Dioxide (22-30) mmol/L Anion Gap mmol/L BUN (7-17) mg/dL Creatinine (0.52-1.04) mg/dL Est GFR (CKD-EPI)AfAm (>60 ml/min/1.73 sqM) Est GFR (CKD-EPI)NonAf (>60 ml/min/1.73 sqM) Glucose (74-99) mg/dL Plasma Lactic Acid Eliot 1.3 (0.7-2.0) mmol/L Calcium (8.4-10.2) mg/dL Total Bilirubin (0.2-1.3) mg/dL AST (14-36) U/L ALT (4-34) U/L Alkaline Phosphatase (38-126) U/L Total Protein (6.3-8.2) g/dL Albumin (3.5-5.0) g/dL Amylase (30-110) U/L Lipase (23-300) U/L Urine Color Urine Appearance (Clear) Urine pH (5.0-8.0) Ur Specific [place] (1.001-1.035) Urine Protein (Negative) Urine Glucose (UA) (Negative) Urine Ketones (Negative) Urine Blood (Negative) Urine Nitrite (Negative) Urine Bilirubin (Negative) Urine Urobilinogen (<2.0) mg/dL Ur Leukocyte Esterase (Negative) Disposition Clinical Impression: Diverticulitis Disposition: HOME SELF-CARE Condition: Stable Instructions (If sedation given, give patient instructions): Diverticulitis (ED) Additional Instructions: Please return to the Emergency Department if symptoms worsen or any other concerns. Computed tomography scan shows evidence of mild diverticulitis. Take antibiotics as prescribed, finish entire course. May take Toradol or ibuprofen for discomfort. Follow-up with PCP as needed. Prescriptions: Amoxicillin/Potassium Clav [Augmentin 875-125 Tablet] 1 tab PO BID 7 Days #14 tab Ketorolac [Toradol] 10 mg PO Q8HR #10 tab Is patient prescribed a controlled substance at d/c from ED?: No Referrals: Glynn Mueller MD [Primary Care Provider] - 1-2 days
[2020-02-23 12:14] LABS: Basophils # (A) 0.1 k/uL (0-0.2); Basophils % (A) 1 %; Eosinophils # (A) 0.1 k/uL (0-0.7); Eosinophils % (A) 1 %; HCT 48.7 % (34.0-46.0); HGB 16.5 gm/dL (11.4-16.0); Lymphocytes # (A) 3.6 k/uL (1.0-4.8); Lymphocytes % (A) 32 %; MCH 32.4 pg (25.0-35.0); MCV 95.4 fL (80.0-100.0); Mean Platelet Volume 7.7; Monocytes # (A) 0.6 k/uL (0-1.0); Monocytes % (A) 5 %; Neutrophils # (A) 6.6 k/uL (1.3-7.7); Neutrophils % (A) 59 %; Platelet Count 243 k/uL (150-450); RDW 12.1 % (11.5-15.5); WBC 11.2 k/uL (3.8-10.6)
[2020-02-23 12:25] LABS: ALT 21 U/L (4-34); AST 24 U/L (14-36); African American GFR (CKD) >90 (>60 ml/min/1.73 sqM); Albumin 4.4 g/dL (3.5-5.0); Alkaline Phosphatase 79 U/L (38-126); Amylase 58 U/L (30-110); Anion Gap 9 mmol/L; Blood Urea Nitrogen 7 mg/dL (7-17); Calcium 9.9 mg/dL (8.4-10.2); Carbon Dioxide 25 mmol/L (22-30); Chloride 106 mmol/L (98-107); Glucose 112 mg/dL (74-99); Lipase 151 U/L (23-300); Non-African American GFR(CKD) >90 (>60 ml/min/1.73 sqM); Potassium 4.2 mmol/L (3.5-5.1); Sodium 140 mmol/L (137-145); Total Bilirubin 0.6 mg/dL (0.2-1.3); Total Protein 7.2 g/dL (6.3-8.2)
--- NOTE | 2020-02-23 12:49 | CT ---
EXAMINATION TYPE: CT abdomen pelvis w con DATE OF EXAM: 02/23/2020 COMPARISON: 09/04/2017 INDICATION: LLQ pain with nausea DLP: 1443.2 mGycm, Automated exposure control for dose reduction was used. CONTRAST: 100 mL of Isovue 300. Study performed without Oral Contrast TECHNIQUE: Axial images were obtained from above the diaphragm to the pubic rami in the axial plane a t 5 mm thick sections. Reconstructed images are reviewed on the computer in the coronal plane. FINDINGS: Limited CT sections are obtained the lung bases. The lung bases are clear. CT ABDOMEN: Postsurgical changes of the stomach are evident. Liver: There is mild to moderate fatty infiltration liver. No discrete masses are evident. Spleen: Normal Pancreas: Normal Adrenal glands: The adrenal glands are normal. Gallbladder: Normal Kidneys: No masses are evident. No hydronephrosis is present. No cysts are present. Delayed images were obtained through the kidneys, which remain unremarkable. Aorta: Normal Inferior vena cava: Normal. CT PELVIS: There are couple of diverticuli within the mid descending colon. Inflammatory changes and thickening of the bowel wall is evident. Findings can be compatible with acute diverticulitis or colitis. No abs cess formation or free air is identified. Study is without oral contrast causing some limitation port ions of this bowel evaluation. Appendix: Normal as visualized. Urinary bladder: Normal. Genitourinary structures: Uterus is normal. There is a cystlike area on the right ovary measuring 3.2 cm. Left ovary appears unremarkable. Osseous structures: No suspicious lytic or sclerotic lesions. IMPRESSIONS: 1. Inflammatory changes and thickening of bowel wall within the distal descending colon. Couple of d iverticuli or adjacent. Findings can be compatible with acute diverticulitis or colitis. 2. Suspected right ovarian cyst. 3. Mild to moderate fatty infiltration liver.
[2020-02-23 12:51] LABS: Appearance,Urine Clear (Clear); Bilirubin,Urine Negative (Negative); Blood,Urine Negative (Negative); Color,Urine Light Yellow; Glucose,Urine (UA) 4+ (Negative); Ketones,Urine Trace (Negative); Leukocyte Esterase,Urine Negative (Negative); Nitrite,Urine Negative (Negative); Protein,Urine Negative (Negative); Urobilinogen,Urine <2.0 mg/dL (<2.0)
[2020-02-23 12:59] LABS: Specific Gravity,Urine >1.050 (1.001-1.035)
[2020-02-23 13:33] VITALS: BP 134/86; PULSE 80
== END 2020-02-23 13:33 | disposition home or self-care (01) ==
LOC: EC 11:19
DX: K57.92 Diverticulitis of intestine, part unspecified, without perforation or abscess without bleeding (principal); E11.9 Type 2 diabetes mellitus without complications; D72.829 Elevated white blood cell count, unspecified; G47.30 Sleep apnea, unspecified; F41.9 Anxiety disorder, unspecified; F32.9 Major depressive disorder, single episode, unspecified; Z79.899 Other long term (current) drug therapy; Z88.8 Allergy status to other drugs, medicaments and biological substances; Z91.011 Allergy to milk products; Z98.84 Bariatric surgery status; Z99.89 Dependence on other enabling machines and devices; Z87.891 Personal history of nicotine dependence; Z79.84 Long term (current) use of oral hypoglycemic drugs
CPT/HCPCS: 36415; 80053; 82150; 83605; 83690; 85025; 81003; 74177; 99284; 96374; J1885; Q9967

== ENCOUNTER → 2020-06-22 | Outpatient (CLI) | payer BC ==
--- NOTE | 2020-06-22 16:45 | ECHOS ---
STRESS ECHOCARDIOGRAM LUMASON: N/A Vial INDICATIONS: Chest pain. MEDICATIONS: BASELINE HEART RATE: 74 BASELINE BLOOD PRESSURE: 114/84 MAXIMUM HEART RATE: 152 MAXIMUM BLOOD PRESSURE: 197/75 85% MPHR: 145 100% MPHR: 171 METS: 11.1 MAXIMUM STAGE REACHED: 3 TOTAL EXERCISE TIME: 9 minutes CLINICAL INFORMATION: STRESS DATA: Heart rate 74 pressure is 114/84 mmHg. Baseline EKG showed sinus mechanism. The patient exercised on the treadmill according to [employer] protocol for a total of 9 minutes and achieved 11.1 METs. The max heart rate was 152 which is about 89% of maximum predicted heart rate and maximum blood pressure was 197/75 mmHg. Clinically, the patient did not have any symptoms and the EKG did not show any significant ST or T-wave abnormalities concerning for ischemia. ANALYSIS: On echocardiogram images from parasternal long axis view, parasternal short axis view, apical 4 chamber and apical 2 chamber obtained as the baseline images, at the peak of the heart rate as well as on recovery and the echocardiogram images showed good augmentation in the left ventricular systolic function. CONCLUSION: 1. Excellent exercise tolerance. 2. Normal EKG in response to exercise. 3. Normal echocardiogram response to exercise. MMODL / IJN: [id number] /
== END ==
LOC: RADNMMAIN 09:57
PROVIDERS: ATTEND Family Medicine
DX: R07.9 Chest pain, unspecified (principal)
CPT/HCPCS: 93351

== ENCOUNTER 2020-11-25 10:18 | Observation (INO) | payer BC ==
[2020-11-25] MEDS ORDERED: KETOROLAC 15 MG/ML 1 ML VIAL IVP STA (10:32)
[2020-11-25] MEDS ORDERED: SODIUM CHLORIDE 0.9% 1,000 ML IV STA (10:32)
[2020-11-25 11:11] LABS: Basophils # (A) 0.1 k/uL (0-0.2); Basophils % (A) 1 %; Eosinophils # (A) 0.1 k/uL (0-0.7); Eosinophils % (A) 2 %; HCT 45.5 % (34.0-46.0); HGB 15.1 gm/dL (11.4-16.0); Lymphocytes # (A) 2.1 k/uL (1.0-4.8); Lymphocytes % (A) 41 %; MCHC 33.3 g/dL (31.0-37.0); MCV 93.2 fL (80.0-100.0); Mean Platelet Volume 8.4; Monocytes # (A) 0.2 k/uL (0-1.0); Monocytes % (A) 5 %; Neutrophils # (A) 2.6 k/uL (1.3-7.7); Neutrophils % (A) 50 %; Platelet Count 230 k/uL (150-450); RBC 4.88 m/uL (3.80-5.40); RDW 12.5 % (11.5-15.5); WBC 5.1 k/uL (3.8-10.6)
[2020-11-25 11:50] LABS: ALT 23 U/L (4-34); AST 28 U/L (14-36); African American GFR (CKD) >90 (>60 ml/min/1.73 sqM); Albumin 4.5 g/dL (3.5-5.0); Alkaline Phosphatase 87 U/L (38-126); Amylase 58 U/L (30-110); Anion Gap 10 mmol/L; Blood Urea Nitrogen 13 mg/dL (7-17); Calcium 9.6 mg/dL (8.4-10.2); Carbon Dioxide 22 mmol/L (22-30); Chloride 108 mmol/L (98-107); Glucose 131 mg/dL (74-99); Lipase 145 U/L (23-300); Non-African American GFR(CKD) >90 (>60 ml/min/1.73 sqM); Potassium 3.9 mmol/L (3.5-5.1); Sodium 140 mmol/L (137-145); Total Bilirubin 0.4 mg/dL (0.2-1.3); Total Protein 7.2 g/dL (6.3-8.2)
--- NOTE | 2020-11-25 12:51 | ED ---
Abdominal Pain HPI - General Chief Complaint: Abdominal Pain Stated Complaint: abd pain Time Seen by Provider: 11/25/20 10:27 Source: patient, RN notes reviewed Mode of arrival: ambulatory Limitations: no limitations - History of Present Illness Initial Comments: Patient is a 50-year-old female that presents to the emergency department complaining of right lower quadrant. She notes that she got a outpatient computed tomography scan today and was told to come to the emergency room for evaluation for possible appendicitis. She notes that while laying in bed her pain is very mild and tolerable. She notes that when she moves it is worse. She was otherwise a well-appearing 50-year-old female. She notes that she does have a history of a gastric sleeve surgery done by Dr. Crump. She denied any other symptoms at this time. She denied any chest pain shortness breath headache nausea vomiting fever fatigue chills. - Related Data Home Medications Medication Instructions Recorded Confirmed Meclizine HCl 25 mg PO TID PRN 02/19/18 02/23/20 Canagliflozin/Metformin HCl 1 tab PO BID 02/23/20 02/23/20 [Invokamet 150-1,000 mg Tablet] Clotrimazole/Betameth Cream 1 applic TOPICAL BID 02/23/20 02/23/20 [Lotrisone] Dulaglutide [Trulicity] 1.5 mg SQ ACOSTA 02/23/20 02/23/20 Venlafaxine HCl ER [Effexor Xr] 225 mg PO DAILY 02/23/20 02/23/20 Previous Rx's Medication Instructions Recorded Amoxicillin/Potassium Clav 1 tab PO BID 7 Days #14 tab 02/23/20 [Augmentin 875-125 Tablet] Ketorolac [Toradol] 10 mg PO Q8HR #10 tab 02/23/20 Allergies Allergy/AdvReac Type Severity Reaction Status Date / Time milk AdvReac CONGESTIONS, Verified 11/25/20 10:22 SINUS DRAINAGE phenazopyridine AdvReac Nausea & Verified 11/25/20 10:22 [From Pyridium] Vomiting Review of Systems ROS Statement: Those systems with pertinent positive or pertinent negative responses have been documented in the HPI. ROS Other: All systems not noted in ROS Statement are negative. Past Medical History Past Medical History: Diabetes Mellitus, GERD/Reflux, Pneumonia, Sleep Apnea/CPAP/BIPAP Additional Past Medical History / Comment(s): SEIZURE X1 ([employer]), PCOS. , Vertigo, RLS. , PNEUMONIA (MAR 2015),does not use BI PAP MACHINE History of Any Multi-Drug Resistant Organisms: None Reported Past Surgical History: Bariatric Surgery, Breast Surgery, Uterine Ablation Additional Past Surgical History / Comment(s): Breast Reduction; Lump Removed from LT breast, BENIGN. D&C., COLONOSCOPY, EGD (05/2015). Gastric Sleeve 08/15/15 Past Anesthesia/Blood Transfusion Reactions: Previous Problems w/ Anesthesia, Family History of Problems w/ Anesthesia, Motion Sickness Additional Past Anesthesia/Blood Transfusion Reaction / Comment(s): Takes a long time to come of anesthesia X1 with breast reduction surgery. (REFUSES BLOOD PRODUCTS)-personal preference. DTR has PONV Past Psychological History: Anxiety, Depression Smoking Status: Former smoker Past Alcohol Use History: Occasional Past Drug Use History: None Reported - Past Family History Mother Additional Family Medical History / Comment(s): Benign tumor in uterus, removed. Father Family Medical History: Cancer, CVA/TIA, Diabetes Mellitus Additional Family Medical History / Comment(s): leukemia of spleen, hemchromatosis (to much iron in blood), neuropathy, back surgery fushions. MELANOMA. General Exam Limitations: no limitations General appearance: alert, in no apparent distress Head exam: Present: atraumatic, normocephalic, normal inspection Eye exam: Present: normal appearance, PERRL, EOMI. Absent: scleral icterus, conjunctival injection, periorbital swelling Neck exam: Present: normal inspection Respiratory exam: Present: normal lung sounds bilaterally. Absent: respiratory distress, wheezes, rales, rhonchi, stridor Cardiovascular Exam: Present: regular rate, normal rhythm, normal heart sounds. Absent: systolic murmur, diastolic murmur, rubs, gallop, clicks GI/Abdominal exam: Present: soft, tenderness (Left lower quadrant right upper quadrant radiating towards the epigastric region.), normal bowel sounds. Absent: distended, guarding, rebound, rigid Extremities exam: Present: normal inspection, full ROM, normal capillary refill. Absent: tenderness, pedal edema, joint swelling, calf tenderness Neurological exam: Present: alert, oriented X3 Psychiatric exam: Present: normal affect, normal mood Skin exam: Present: warm, dry, intact, normal color. Absent: rash Course Vital Signs 08/04/21 10:22 Temperature 98 F Pulse Rate 85 Respiratory 18 Rate Blood Pressure 139/85 O2 Sat by Pulse 94 L Oximetry Medical Decision Making - Medical Decision Making 50-year-old female complaining of right lower quadrant pain. Had an outpatient computed tomography scan done this morning. Labs, 1 L normal saline ordered. Computed tomography scan from this morning shows dilated appendix at the base with some mild fat stranding. Labs unremarkable. Case discussed with Dr. Toribio, patient will be admitted to Dr. Crump for surgical consult. 1 dose of Zosyn ordered. - Lab Data Result diagrams: 11/25/20 10:55 11/25/20 10:55 Lab Results 11/25/20 11/25/20 11/25/20 Range/Units 10:55 10:55 10:55 WBC 5.1 (3.8-10.6) k/uL RBC 4.88 (3.80-5.40) m/uL Hgb 15.1 (11.4-16.0) gm/dL Hct 45.5 (34.0-46.0) % MCV 93.2 (80.0-100.0) fL MCH 31.0 (25.0-35.0) pg MCHC 33.3 (31.0-37.0) g/dL RDW 12.5 (11.5-15.5) % Plt Count 230 (150-450) k/uL MPV 8.4 Neutrophils % 50 % Lymphocytes % 41 % Monocytes % 5 % Eosinophils % 2 % Basophils % 1 % Neutrophils # 2.6 (1.3-7.7) k/uL Lymphocytes # 2.1 (1.0-4.8) k/uL Monocytes # 0.2 (0-1.0) k/uL Eosinophils # 0.1 (0-0.7) k/uL Basophils # 0.1 (0-0.2) k/uL Sodium 140 (137-145) mmol/L Potassium 3.9 (3.5-5.1) mmol/L Chloride 108 H (98-107) mmol/L Carbon Dioxide 22 (22-30) mmol/L Anion Gap 10 mmol/L BUN 13 (7-17) mg/dL Creatinine 0.52 (0.52-1.04) mg/dL Est GFR (CKD-EPI)AfAm >90 (>60 ml/min/1.73 sqM) Est GFR (CKD-EPI)NonAf >90 (>60 ml/min/1.73 sqM) Glucose 131 H (74-99) mg/dL Plasma Lactic Acid Eliot 1.0 (0.7-2.0) mmol/L Calcium 9.6 (8.4-10.2) mg/dL Total Bilirubin 0.4 (0.2-1.3) mg/dL AST 28 (14-36) U/L ALT 23 (4-34) U/L Alkaline Phosphatase 87 (38-126) U/L Total Protein 7.2 (6.3-8.2) g/dL Albumin 4.5 (3.5-5.0) g/dL Amylase 58 (30-110) U/L Lipase 145 (23-300) U/L Disposition Clinical Impression: Acute appendicitis Disposition: ADMITTED IP TO THIS [facility] Condition: Stable Is patient prescribed a controlled substance at d/c from ED?: No Referrals: Glynn Mueller MD [Primary Care Provider] - 1-2 days Time of Disposition: 12:51
--- NOTE | 2020-11-25 12:53 | ED ---
Medical Decision Making - Lab Data Result diagrams: 11/25/20 10:55 11/25/20 10:55 Lab Results 11/25/20 11/25/20 11/25/20 Range/Units 10:55 10:55 10:55 WBC 5.1 (3.8-10.6) k/uL RBC 4.88 (3.80-5.40) m/uL Hgb 15.1 (11.4-16.0) gm/dL Hct 45.5 (34.0-46.0) % MCV 93.2 (80.0-100.0) fL MCH 31.0 (25.0-35.0) pg MCHC 33.3 (31.0-37.0) g/dL RDW 12.5 (11.5-15.5) % Plt Count 230 (150-450) k/uL MPV 8.4 Neutrophils % 50 % Lymphocytes % 41 % Monocytes % 5 % Eosinophils % 2 % Basophils % 1 % Neutrophils # 2.6 (1.3-7.7) k/uL Lymphocytes # 2.1 (1.0-4.8) k/uL Monocytes # 0.2 (0-1.0) k/uL Eosinophils # 0.1 (0-0.7) k/uL Basophils # 0.1 (0-0.2) k/uL Sodium 140 (137-145) mmol/L Potassium 3.9 (3.5-5.1) mmol/L Chloride 108 H (98-107) mmol/L Carbon Dioxide 22 (22-30) mmol/L Anion Gap 10 mmol/L BUN 13 (7-17) mg/dL Creatinine 0.52 (0.52-1.04) mg/dL Est GFR (CKD-EPI)AfAm >90 (>60 ml/min/1.73 sqM) Est GFR (CKD-EPI)NonAf >90 (>60 ml/min/1.73 sqM) Glucose 131 H (74-99) mg/dL Plasma Lactic Acid Eliot 1.0 (0.7-2.0) mmol/L Calcium 9.6 (8.4-10.2) mg/dL Total Bilirubin 0.4 (0.2-1.3) mg/dL AST 28 (14-36) U/L ALT 23 (4-34) U/L Alkaline Phosphatase 87 (38-126) U/L Total Protein 7.2 (6.3-8.2) g/dL Albumin 4.5 (3.5-5.0) g/dL Amylase 58 (30-110) U/L Lipase 145 (23-300) U/L - Radiology Data Radiology results: report reviewed, image reviewed CT of the abdomen and pelvis: Status post sleeve gastrectomy. There is circumferential wall thickening at the distal esophagus they can be seen with e sophagitis. Thickening at the base of the appendix up to 1.1 cm. There are some subtle surrounding fat stranding as well. Enlarged right ovary with a volume of 31.6 L possible underlying cyst. Stable mild hepatosplenomegaly. Mild hepatic steatosis. Mild diverticulosis at the junction of the descending and sigmoid colon. No evidence for acute diverticulitis. Disposition Clinical Impression: Acute appendicitis Disposition: ADMITTED IP TO THIS [facility] Condition: Stable Is patient prescribed a controlled substance at d/c from ED?: No Referrals: Glynn Mueller MD [Primary Care Provider] - 1-2 days
[2020-11-25] MEDS ORDERED: NALOXONE 0.4 MG/ML 1 ML VIAL IV PRN (13:01)
[2020-11-25 13:23] LABS: Appearance,Urine Clear (Clear); Bilirubin,Urine Negative (Negative); Blood,Urine Negative (Negative); Color,Urine Yellow; Glucose,Urine (UA) Trace (Negative); Ketones,Urine Trace (Negative); Leukocyte Esterase,Urine Small (Negative); Mucus,Urine Occasional /hpf; Nitrite,Urine Negative (Negative); Protein,Urine Trace (Negative); RBC,Urine 1 /hpf (0-5); Specific Gravity,Urine 1.028 (1.001-1.035); Squamous Epithelial Cell,Urine 2 /hpf (0-4); Urobilinogen,Urine <2.0 mg/dL (<2.0); WBC,Urine 3 /hpf (0-5)
[2020-11-25] MEDS ORDERED: LIDOCAINE 1% (10MG/ML) FOR IV START INTRADERMA PRN (14:02)
[2020-11-25] MEDS ORDERED: DEXAMETHASONE SOD PHOSPHATE 4 MG/ML 1 ML VIAL IV ONE (14:02)
[2020-11-25] MEDS ORDERED: ONDANSETRON 4 MG/2 ML VIAL IVP ONE (14:02)
[2020-11-25] MEDS ORDERED: LACTATED RINGERS 1,000 ML IV SCH (14:15)
[2020-11-25] MEDS: KETOROLAC 15 MG/ML 1 ML VIAL IVP SCH ×2 (17:19→23:45)
[2020-11-25] MEDS ORDERED: MECLIZINE 25 MG TAB PO PRN (17:37)
[2020-11-25] MEDS ORDERED: ALPRAZolam 0.25 MG TAB PO PRN (17:37)
--- NOTE | 2020-11-25 17:45 | P.GSHP ---
History of Present Illness H&P Date: 11/25/20 CHIEF COMPLAINT: Right lower quadrant abdominal pain HISTORY OF PRESENT ILLNESS: Lisa Vázquez is a 50-year-old female with history of status post sleeve gastrectomy on 08/14/2015 who presents with new right lower quadrant abdominal pain for 4 days. No reports of fevers or chills. Patient reported having been generalized muscle aches including back pain. She had seen a chiropractor the last 2-3 days. She had an adjustment of her back in the back pain improved. She noted increased tenderness along the right lower quadrant. As her pain became severe she presented to the emergency room. No prior episodes. PAST MEDICAL HISTORY: 1. Diabetes type 2, not insulin dependent 2. Gastroesophageal reflux disease. 3. Dyslipidemia. 4. Hypertension. 5. Vertigo. 6. Menopause. 7. Restless leg syndrome. 8. Anxiety. 9. Obstructive sleep apnea. 10. Morbid obesity due to excess calories PAST SURGICAL HISTORY: 1. Uterine ablation. 2. Bilateral breast reduction. 3. Left breast lumpectomy. 4. D&C. 5. Status post sleeve gastrectomy. MEDICATIONS: Home Medications Medication Instructions Recorded Confirmed Meclizine HCl 25 mg PO TID PRN 02/19/18 11/25/20 Venlafaxine HCl ER [Effexor Xr] 225 mg PO DAILY 02/23/20 11/25/20 ALPRAZolam [Xanax] 0.25 mg PO DAILY PRN 11/25/20 11/25/20 Clotrimazole [Clotrimazole AF] 1 applic TOPICAL BID 11/25/20 11/25/20 Dulaglutide [Trulicity] 3 mg SQ Q7D 11/25/20 11/25/20 Terbinafine [LamISIL] 250 mg PO DAILY 11/25/20 11/25/20 ALLERGIES: Allergies Allergy/AdvReac Type Severity Reaction Status Date / Time meperidine [From Demerol] AdvReac Unknown Verified 11/25/20 15:58 milk AdvReac CONGESTIONS, Verified 11/25/20 15:58 SINUS DRAINAGE phenazopyridine AdvReac Nausea & Verified 11/25/20 15:58 [From Pyridium] Vomiting SOCIAL HISTORY: Lifelong nontobacco user. Has intermittent alcohol use. FAMILY HISTORY: Pertinent for diabetes type 2. No reports of ulcerative colitis or Crohn disease. REVIEW OF SYSTEMS: CONSTITUTIONAL: Body mass index reduced from 39.5. ENDOCRINE: Resolved diabetes type 2. No reports of active thyroid disorder to her knowledge. GASTROINTESTINAL: History of gastroesophageal reflux disease. MUSCULOSKELETAL: Has diffuse osteoarthritis. RESPIRATORY:Resolved obstructive sleep apnea. HEENT: No troubles with vision or hearing. CARDIOVASCULAR: History of dyslipidemia as well as hypertension. NEURO: No reports of stroke or seizure disorder. PSYCH: History of anxiety including depression. HEMATOLOGIC: No personal history of deep venous thromboembolic event. PHYSICAL EXAM: VITAL SIGNS: Reviewed. ABDOMEN: Soft. No peritonitis. Right lower quadrant discomfort. GENERAL: Well-developed, pleasant female in no acute distress. CARDIOVASCULAR: Regular rate, regular rhythm. HEENT: No scleral icterus. Extraocular muscles grossly intact. Moist buccal mucosa. NECK: Supple without lymphadenopathy. CHEST: Nonlabored respirations. MUSCULOSKELETAL: No clubbing, cyanosis, or edema. NEURO: No focal or lateralizing signs. PSYCH: Appropriate affect. Alert and oriented to person, place and time. SKIN: Well perfused LABS: Reviewed. White blood cell count normal. STUDIES: CT of the abdomen and pelvis and up reviewed demonstrating noncontrast study. Inflammatory changes of the right lower quadrant with thickened appendix identified. This is my independent interpretation. ASSESSMENT: 1. Acute appendicitis 2. Body mass index reduced from 39.5 down to 35.7 3. Diabetes type 2, [id number] 4. Chronic constipation. 5. Panniculitis. 6. Obstructive sleep apne 7. Hypertension without congestive heart failure. 8. Osteoarthritis of the bilateral knees secondary to morbid obesity. 9. Osteoarthritis of the lower back secondary to morbid obesity. 10. Osteoarthritis of the bilateral hips secondary to morbid obesity. 11. Status post sleeve gastrectomy. 12. Morbid obesity due to excess calories. PLAN: 1. IV antibiotics for acute appendicitis 2. Robotic appendectomy described including benefits and risks. 3. DVT prophylaxis 4. Patient's elevated risk pre-existing history of abdominal procedures including morbid obesity Past Medical History Past Medical History: Diabetes Mellitus, GERD/Reflux, Pneumonia, Sleep Apnea/CPAP/BIPAP Additional Past Medical History / Comment(s): SEIZURE X1 ([employer]), PCOS. , Vertigo, RLS. ,does not use BI PAP MACHINE, diverticulitis. History of Any Multi-Drug Resistant Organisms: None Reported Past Surgical History: Bariatric Surgery, Breast Surgery, Uterine Ablation Additional Past Surgical History / Comment(s): Breast Reduction; Lump Removed from LT breast, BENIGN. D&C., COLONOSCOPY, EGD (05/2015). Gastric Sleeve 08/15/15 Past Anesthesia/Blood Transfusion Reactions: Previous Problems w/ Anesthesia, Family History of Problems w/ Anesthesia, Motion Sickness Additional Past Anesthesia/Blood Transfusion Reaction / Comment(s): Takes a long time to come of anesthesia X1 with breast reduction surgery. (REFUSES BLOOD PRODUCTS)-personal preference. DTR has PONV Past Psychological History: Anxiety, Depression Additional Psychological History / Comment(s): HX OF DEPRESSION POST . Smoking Status: Never smoker Past Alcohol Use History: Occasional Past Drug Use History: None Reported - Past Family History Mother Additional Family Medical History / Comment(s): Benign tumor in uterus, removed. Father Family Medical History: Cancer, CVA/TIA, Diabetes Mellitus Additional Family Medical History / Comment(s): leukemia of spleen, hemchromatosis (to much iron in blood), neuropathy, back surgery fushions. MELANOMA. Medications and Allergies Home Medications Medication Instructions Recorded Confirmed Type Meclizine HCl 25 mg PO TID PRN 02/19/18 11/25/20 History Venlafaxine HCl ER [Effexor Xr] 225 mg PO DAILY 02/23/20 11/25/20 History ALPRAZolam [Xanax] 0.25 mg PO DAILY PRN 11/25/20 11/25/20 History Clotrimazole [Clotrimazole AF] 1 applic TOPICAL BID 11/25/20 11/25/20 History Dulaglutide [Trulicity] 3 mg SQ Q7D 11/25/20 11/25/20 History Terbinafine [LamISIL] 250 mg PO DAILY 11/25/20 11/25/20 History Allergies Allergy/AdvReac Type Severity Reaction Status Date / Time meperidine [From Demerol] AdvReac Unknown Verified 11/25/20 15:58 milk AdvReac CONGESTIONS, Verified 11/25/20 15:58 SINUS DRAINAGE phenazopyridine AdvReac Nausea & Verified 11/25/20 15:58 [From Pyridium] Vomiting Surgical - Exam Vital Signs Temp Pulse Resp BP Pulse Ox 98 F 85 18 139/85 94 L 11/25/20 10:22 11/25/20 10:22 11/25/20 10:22 11/25/20 10:22 11/25/20 10:22 Results - Labs 11/25/20 10:55 11/25/20 10:55 Abnormal Lab Results - Last 24 Hours (Table) 11/25/20 11/25/20 Range/Units 10:55 10:55 Chloride 108 H (98-107) mmol/L Glucose 131 H (74-99) mg/dL Urine Protein Trace H (Negative) Urine Glucose (UA) Trace H (Negative) Urine Ketones Trace H (Negative) Ur Leukocyte Esterase Small H (Negative) Urine Mucus Occasional H (None) /hpf Diabetes panel 11/25/20 Range/Units 10:55 Sodium 140 (137-145) mmol/L Potassium 3.9 (3.5-5.1) mmol/L Chloride 108 H (98-107) mmol/L Carbon Dioxide 22 (22-30) mmol/L BUN 13 (7-17) mg/dL Creatinine 0.52 (0.52-1.04) mg/dL Glucose 131 H (74-99) mg/dL Calcium 9.6 (8.4-10.2) mg/dL AST 28 (14-36) U/L ALT 23 (4-34) U/L Alkaline Phosphatase 87 (38-126) U/L Total Protein 7.2 (6.3-8.2) g/dL Albumin 4.5 (3.5-5.0) g/dL Calcium panel 11/25/20 Range/Units 10:55 Calcium 9.6 (8.4-10.2) mg/dL Albumin 4.5 (3.5-5.0) g/dL Pituitary panel 11/25/20 Range/Units 10:55 Sodium 140 (137-145) mmol/L Potassium 3.9 (3.5-5.1) mmol/L Chloride 108 H (98-107) mmol/L Carbon Dioxide 22 (22-30) mmol/L BUN 13 (7-17) mg/dL Creatinine 0.52 (0.52-1.04) mg/dL Glucose 131 H (74-99) mg/dL Calcium 9.6 (8.4-10.2) mg/dL Adrenal panel 11/25/20 Range/Units 10:55 Sodium 140 (137-145) mmol/L Potassium 3.9 (3.5-5.1) mmol/L Chloride 108 H (98-107) mmol/L Carbon Dioxide 22 (22-30) mmol/L BUN 13 (7-17) mg/dL Creatinine 0.52 (0.52-1.04) mg/dL Glucose 131 H (74-99) mg/dL Calcium 9.6 (8.4-10.2) mg/dL Total Bilirubin 0.4 (0.2-1.3) mg/dL AST 28 (14-36) U/L ALT 23 (4-34) U/L Alkaline Phosphatase 87 (38-126) U/L Total Protein 7.2 (6.3-8.2) g/dL Albumin 4.5 (3.5-5.0) g/dL
[2020-11-25] MEDS: SODIUM CHLORIDE 0.9% 1,000 ML IV SCH (18:03)
[2020-11-25] MEDS: ACETAMINOPHEN IV (For NPO) 1,000 MG in EMPTY BAG 1 BAG IVPB SCH ×2 (18:03→23:45)
[2020-11-25] MEDS: VENLAFAXINE HCL ER 75 MG CAP PO SCH (18:32)
[2020-11-25] MEDS: PIPERACILLIN-TAZOBACTAM 3.375 GM in SODIUM CHLORIDE 0.9% 100 ML IVPB SCH (18:32)
[2020-11-26] MEDS: PIPERACILLIN-TAZOBACTAM 3.375 GM in SODIUM CHLORIDE 0.9% 100 ML IVPB SCH ×3 (01:02→18:10)
[2020-11-26] MEDS: SODIUM CHLORIDE 0.9% 1,000 ML IV SCH ×2 (01:02→16:12)
[2020-11-26] MEDS: ACETAMINOPHEN IV (For NPO) 1,000 MG in EMPTY BAG 1 BAG IVPB SCH ×2 (05:30→16:36)
[2020-11-26] MEDS: KETOROLAC 15 MG/ML 1 ML VIAL IVP SCH ×5 (05:31→18:06)
[2020-11-26] MEDS ORDERED: HEPARIN SODIUM,PORCINE/PF 5,000 UNIT/0.5 ML SYRINGE SQ PRN (08:05)
[2020-11-26] MEDS ORDERED: IV FLUID CONTINUATION 400 ML IV ONE (11:38)
[2020-11-26] MEDS ORDERED: ONDANSETRON 4 MG/2 ML VIAL ONE (12:02)
[2020-11-26 12:13] LABS: Glucose,Whole Blood 89 mg/dL (75-99)
[2020-11-26] MEDS ORDERED: SCOPOLAMINE 1.5MG/72HR PATCH TRANSDERM ONE (12:15)
[2020-11-26] MEDS ORDERED: fentaNYL (PF) 50 MCG/ML 2 ML AMP IVP ONE (13:15)
[2020-11-26] MEDS ORDERED: MIDAZOLAM 2 MG/2 ML VIAL IVP ONE (13:15)
--- NOTE | 2020-11-26 13:44 | P.ANPRN ---
Procedure Note - Anesthesia - Nerve Block Performed Bilateral Erector Spinae Single Time Out Performed: Yes Date of Procedure: 11/26/20 Procedure Start Time: 13:13 Procedure Stop Time: : Location of Patient: PreOp Indication: Requested by Surgeon Specifically requested for management of pain by DrDorene: Nurys Crump Sedation Type: Sedate with meaningful contact maintained Preparation: Sterile Prep Position: Prone Needle Types: Pajunk Needle Gauge: 21 Ultrasound used to visualize needle placement: Yes Ultrasound used to observe medication spread: Yes Injectate: 0.5% Ropivacaine (see comment for volume) (15 ml + 15 ml NS + dexamethasone 4 mg Per side) Blood Aspirated: No Pain Paresthesia on Injection Noted: No Resistance on Injection: Normal Image Stored and Saved: Yes Events: Uneventful and Well Tolerated
[2020-11-26] MEDS ORDERED: GLYCOPYRROLATE 0.2 MG/ML 2 ML VIAL ONE (14:00)
[2020-11-26] MEDS ORDERED: MIDAZOLAM 2 MG/2 ML VIAL ONE (14:00)
[2020-11-26] MEDS ORDERED: SUCCINYLCHOLINE CHLORIDE 100 MG/5 ML SYR IV ONE (14:00)
[2020-11-26] MEDS ORDERED: ROPIVACAINE 5 MG/ML 30 ML VIAL ONE (14:00)
[2020-11-26] MEDS ORDERED: NEOSTIGMINE 1 MG/ML 10 ML VIAL ONE (14:00)
[2020-11-26] MEDS ORDERED: LIDOCAINE 1% INJ 10MG/ML (20 ML MDV) ONE (14:00)
[2020-11-26] MEDS ORDERED: ROCURONIUM 10 MG/ML (5 ML VIAL) IV ONE (14:00)
[2020-11-26] MEDS ORDERED: SODIUM CHLORIDE 0.9% (PF) 10 ML VIAL ONE (14:00)
[2020-11-26] MEDS ORDERED: fentaNYL (PF) 50 MCG/ML 2 ML AMP ONE (14:00)
[2020-11-26] MEDS ORDERED: PROPOFOL 10 MG/ML 20 ML VIAL IV ONE (14:00)
[2020-11-26] MEDS ORDERED: DEXAMETHASONE SOD PHOSPHATE 4 MG/ML 1 ML VIAL ONE (14:00)
[2020-11-26] MEDS ORDERED: IV FLUID CONTINUATION 500 ML IV ONE (14:02)
[2020-11-26] MEDS ORDERED: BUPIVACAINE (PF) 0.25% 30 ML VIAL SQ ONE (14:24)
[2020-11-26] MEDS: VENLAFAXINE HCL ER 75 MG CAP PO SCH (16:14)
[2020-11-26 16:18] VITALS: RESP 16
[2020-11-26 19:18] VITALS: BP 130/85; PULSE 96; TEMP 97.9
[2020-11-26] MEDS ORDERED: ACETAMINOPHEN TAB 500 MG TAB PO STA (20:26)
--- NOTE | 2020-11-26 20:51 | P.DS ---
Providers Date of admission: 11/25/20 13:07 Expected date of discharge: 11/26/20 Attending physician: Nurys Crump Consults: 11/25/20 12:46 Consult Physician Routine Consulting Provider: [facility] Consult Reason/Comments: Anesthesia [facility] Do you want consulting provider notified?: Yes Primary care physician: Glynn Mueller - Discharge Diagnosis(es) (1) Morbid obesity due to excess calories Status: Acute (2) Status post laparoscopic sleeve gastrectomy Status: Acute (3) Fatty liver disease, nonalcoholic Status: Acute (4) Acute appendicitis Status: Acute Hospital Course: COURSE: The patient is a 50 year old female who presented with right lower quadrant abdominal pain. Diagnostic studies demonstrated acute appendicitis. She underwent robotic appendectomy without sequelae. Prior to discharge, her pain was well controlled. She was tolerating diet. Discharge instructions were reviewed including medicine reconciliation. Procedures: Robotic appendectomy Patient Condition at Discharge: Stable Plan - Discharge Summary Discharge Rx Participant: No New Discharge Prescriptions: New Simethicone [Gas-X] 125 mg PO AC-TID PRN #20 capsule PRN Reason: Pain Acetaminophen Tab [Tylenol Tab] 1,000 mg PO Q6HR PRN #30 tablet PRN Reason: Pain Continue Meclizine HCl 25 mg PO TID PRN PRN Reason: Vertigo Venlafaxine HCl ER [Effexor XR] 225 mg PO DAILY Terbinafine [LamISIL] 250 mg PO DAILY Clotrimazole [Clotrimazole AF] 1 applic TOPICAL BID ALPRAZolam [Xanax] 0.25 mg PO DAILY PRN PRN Reason: Anxiety Dulaglutide [Trulicity] 3 mg SQ Q7D Discharge Medication List Meclizine HCl 25 mg PO TID PRN 02/19/18 [History] Venlafaxine HCl ER [Effexor XR] 225 mg PO DAILY 02/23/20 [History] ALPRAZolam [Xanax] 0.25 mg PO DAILY PRN 11/25/20 [History] Clotrimazole [Clotrimazole AF] 1 applic TOPICAL BID 11/25/20 [History] Dulaglutide [Trulicity] 3 mg SQ Q7D 11/25/20 [History] Terbinafine [LamISIL] 250 mg PO DAILY 11/25/20 [History] Acetaminophen Tab [Tylenol Tab] 1,000 mg PO Q6HR PRN #30 tablet 11/26/20 [Rx] Simethicone [Gas-X] 125 mg PO AC-TID PRN #20 capsule 11/26/20 [Rx] Follow up Appointment(s)/Referral(s): Glynn Mueller MD [Primary Care Provider] - 1-2 days Nurys Crump MD [STAFF PHYSICIAN] - 12/01/20 Patient Instructions/Handouts: Laparoscopic Appendectomy (DC) Activity/Diet/Wound Care/Special Instructions: No lifting over 10 pounds in 2 weeks until . May shower. No bath tub soaks for two weeks until Dec 10 Diet as tolerated. Use Tylenol, simethicone and ibuprofen or Aleve scheduled for the next 24-48 hours for best pain relief. Use ice along incisions for today to prevent swelling. Discharge Disposition: HOME SELF-CARE
--- NOTE | 2020-12-01 14:47 | P.OP ---
Date of Procedure: 11/26/20 Description of Procedure: SURGEON: MISTY BAILEY MD Preoperative Diagnosis: 1. Acute appendicitis 2. Morbid obesity due to excess calories, BMI 35.7 3. Depressive disorder 4. Diabetes mellitus type II, non-insulin dependent 5. Generalized anxiety disorder 6. History of sleeve gastrectomy 7. History of sleep apnea 8. Gastroesophageal reflux disease. Postoperative Diagnosis: 1. Acute appendicitis, retrocecal with periappendicitis 2. Morbid obesity due to excess calories, BMI 35.7 3. Depressive disorder 4. Diabetes mellitus type II, non-insulin dependent 5. Generalized anxiety disorder 6. History of sleeve gastrectomy 7. History of sleep apnea 8. Gastroesophageal reflux disease. Procedure(s) Performed: 1. Robotic-assisted daVinci Xi laparoscopic appendectomy Anesthesia: GETA, local Estimated Blood Loss (ml): 5 Pathology: other (appendix) Condition: stable Disposition: floor Operative Findings: 1. Acute appendicitis without rupture 2. Terminal ileum unremarkable 3. Cecum unremarkable 4. No inguinal hernias 5. Fatty liver disease with hepatomegaly INDICATIONS: The patient is a 50-year-old male who presents with acute appendicitis. Benefits and risks, including infection, open surgery, and bleeding for additional surgery was discussed at length. Informed consent was obtained. All questions of the patient and family were answered. DESCRIPTION: The patient was transferred to the operating room and placed in supine position. The patient had previously voided. The abdomen was then prepped and draped in standard sterile fashion as Ioban was placed along the abdomen to minimize any contamination of skin floor. After a timeout protocol was performed, attention was then brought to the left upper quadrant whereby a 0 degree 5 mm laparoscopic trocar entry was performed. The abdominal cavity was entered and insufflated to 12 mmHg pressure, which was tolerated well. Diagnostic laparoscopy demonstrated no injury to bowel, viscera or mesentery. Features of fatty liver disease with hepatomegaly was found. Next a robotic 8-mm trocar was placed along the left lower quadrant, 10-cm lateral to the midline. A 12 mm port was placed along the left upper quadrant and another 8-mm port left lateral abdominal wall. Ports were placed 8 cm apart from each other including 15-20 cm away from the target anatomy of the right pelvis. The patient was then placed in Trendelenburg position, at least 14 down and right side up at least 7. The robotic da Vik XI system was primed and docked from the left side of the patient. Using atraumatic graspers and vessel sealer, the robotic system was docked and primed as described. Instruments were interchanged by the document control assistant including graspers, robotic stapler and vessel sealer. Next, attention was brought to identify the cecum. A systematic view within the abdominal cavity was started with the small bowel which was unremarkable. The base of the cecum was unremarkable. The bilateral groin was unremarkable. The body of the appendix was moderately dilated with periappendicitis. No perforation was identified. The appendix was dissected free from its surrounding tissues. Blue 45 mm robotic staple loads were fired along the base of the appendix. The staple line was hemostatic. Hemostasis was checked prior to undocking the robot. The robot was undocked. I re-scrubbed into the case. The specimen was removed from the abdominal cavity with an Endo Catch bag through the 12 mm trocar at the left upper quadrant. All instruments and pneumoperitoneum were evacuated from the abdominal cavity. Local anesthetic was infiltrated to all wounds for postop analgesia. All incisions were also cleansed with diluted hydrogen peroxide. The incisions were closed with 4-0 Monocryl. Exofin glue was applied to the rest of the skin incisions. The patient had tolerated the procedure well. The patient was extubated successfully. The patient was transferred to the postanesthesia care unit in stable condition.
== END 2020-11-26 22:25 | disposition home or self-care (01) ==
LOC: EC 10:18 → 6PED 13:07
PROVIDERS: ADMIT Surgery Plastic and Reconstructive Surgery; ATTEND Surgery Plastic and Reconstructive Surgery
DX: K35.80 Unspecified acute appendicitis (principal); E66.01 Morbid (severe) obesity due to excess calories; Z68.35 Body mass index [BMI] 35.0-35.9, adult; F32.9 Major depressive disorder, single episode, unspecified; E11.9 Type 2 diabetes mellitus without complications; F41.1 Generalized anxiety disorder; Z98.84 Bariatric surgery status; K21.9 Gastro-esophageal reflux disease without esophagitis; Z79.84 Long term (current) use of oral hypoglycemic drugs; K76.0 Fatty (change of) liver, not elsewhere classified; R16.0 Hepatomegaly, not elsewhere classified; M79.3 Panniculitis, unspecified; K59.09 Other constipation; E78.5 Hyperlipidemia, unspecified; I10 Essential (primary) hypertension; G47.33 Obstructive sleep apnea (adult) (pediatric); G25.81 Restless legs syndrome; M16.0 Bilateral primary osteoarthritis of hip; M17.0 Bilateral primary osteoarthritis of knee; M47.9 Spondylosis, unspecified; M54.9 Dorsalgia, unspecified; E28.2 Polycystic ovarian syndrome; Z79.899 Other long term (current) drug therapy; Z98.890 Other specified postprocedural states; Z88.8 Allergy status to other drugs, medicaments and biological substances; Z91.011 Allergy to milk products; Z88.5 Allergy status to narcotic agent; Z87.891 Personal history of nicotine dependence; Z87.01 Personal history of pneumonia (recurrent); Z83.3 Family history of diabetes mellitus; Z80.8 Family history of malignant neoplasm of other organs or systems; Z80.6 Family history of leukemia
CPT/HCPCS: 44970; S2900; 36415; 64999; 80053; 81001; 81025; 82150; 83605; 83690; 85025; 88304; 93005; 96361; 96374; 99285

== ENCOUNTER → 2020-11-25 | Outpatient (CLI) | payer BC ==
--- NOTE | 2020-11-25 10:01 | CT ---
EXAMINATION TYPE: CT abdomen pelvis wo con DATE OF EXAM: 11/25/2020 COMPARISON: 02/23/2020 HISTORY: 50-year-old female Upper and mid abdominal pain. R10.9 CT DLP: 1024 mGycm. Automated exposure control for dose reduction was used. TECHNIQUE: Contiguous axial scanning of the abdomen and pelvis without IV contrast. Coronal and sagit hector reconstructions performed. FINDINGS: Heart normal size without pericardial effusion. Lung bases clear without pleural effusion. Circumferential wall thickening distal esophagus. Postsurgical change of sleeve gastrectomy. Mild diminished attenuation of the hepatic parenchyma with some focal fatty sparing along the gallbla dder fossa. The liver is mildly enlarged at 18.1 cm. Gallbladder, adrenal glands, kidneys, and pancreas within normal limits. Spleen mildly enlarged at 14.2 cm. No dilated small bowel, free fluid, or free air. No mesenteric or retroperitoneal lymphadenopathy. The base of the appendix is mildly thickened up to 1.1 cm and there is some subtle surrounding strand y density, axial image 55. Mild colonic stool burden. Mild diverticular change junction of the descen ding and sigmoid colon. No pericolonic inflammation. Bladder not distended. Uterus anteverted. Both ovaries are visualized. Right ovary is enlarged measur ing 4.5 x 3.7 x 3.8 cm for a volume of 31.6 mL. Pelvic fluid levels. No abnormal fluid collection in the pelvis or pelvic lymphadenopathy. Bones: No osseous destructive process. IMPRESSION: 1. Status post sleeve gastrectomy. There is circumferential wall thickening at the distal esophagus that can be seen with esophagitis. Clinically correlate. 2. Thickening at the base of the appendix up to 1.1 cm. There is some subtle surrounding fat strandi ng as well. Correlate for right lower quadrant pain to exclude early acute appendicitis. If asymptoma tic, clinical follow-up and three-month follow-up CT will be recommended to exclude the possibility o f an early appendiceal mass. 3. Enlarged right ovary with a volume of 31.6 mL. Possible underlying cyst. If the patient is postme nopausal, pelvic ultrasound to further evaluate. 4. Stable mild hepatosplenomegaly (liver 18.1 cm and spleen 14.2 cm). Mild hepatic steatosis. 5. Mild diverticulosis at the junction of the descending and sigmoid colon. No evidence for acute di verticulitis.
== END | disposition home or self-care (01) ==
LOC: RADCTMAIN 09:16
PROVIDERS: ATTEND Nurse Practitioner Adult Health
DX: K76.0 Fatty (change of) liver, not elsewhere classified (principal); Z98.84 Bariatric surgery status
CPT/HCPCS: 74176

== ENCOUNTER → 2021-04-15 | Outpatient (CLI) | payer BC ==
[2021-04-15 08:48] LABS: INR 0.9 (<1.2); Partial Thromboplastin Time 22.6 sec (22.0-30.0); Prothrombin Time 10.1 sec (9.0-12.0)
[2021-04-15 11:20] LABS: HCT 42.7 % (37.2-46.3); HGB 14.2 g/dL (12.0-15.0); MCH 31.6 pg (27.0-32.0); MCHC 33.3 g/dL (32.0-37.0); MCV 95.1 fL (80.0-97.0); Mean Platelet Volume 11.1 fL (9.5-12.2); Platelet Count 237 X 10*3/uL (140-440); RBC 4.49 X 10*6/uL (4.10-5.20); RDW 12.4 % (11.5-14.5); WBC 4.89 X 10*3/uL (4.50-10.00)
[2021-04-15 11:50] LABS: % Iron Saturation 32.23 (12.00-45.00); ALT 40 U/L (8-44); AST 25 U/L (13-35); African American GFR (CKD) 112.4 (60.0-200.0); Albumin 4.4 g/dL (3.8-4.9); Albumin/Globulin Ratio 2.02 (1.60-3.17); Alkaline Phosphatase 80 U/L (41-126); BUN/Creat Ratio 16.71 Ratio (12.00-20.00); Blood Urea Nitrogen 12.1 mg/dL (9.0-27.0); Calcium 9.5 mg/dL (8.7-10.3); Carbon Dioxide 25.3 mmol/L (20.0-27.5); Chloride 107 mmol/L (96-109); Chol/HDL Ratio 4.32 Ratio; Ferritin 68.2 ng/mL (10.0-291.0); Globulin 2.2 g/dL (1.6-3.3); Glucose 182 mg/dL (70-110); Iron 111 ug/dL (50-170); LDL Cholesterol,Calculated 113.1 mg/dL (0.0-131.0); Phosphorus 4.2 mg/dL (2.4-5.1); Potassium 3.8 mmol/L (3.5-5.5); Prealbumin 25.2 mg/dL (18.0-42.0); Sodium 145 mmol/L (135-145); Total Iron Binding Capacity 344 ug/dL (228-460); Total Protein 6.5 g/dL (6.2-8.2)
== END | disposition home or self-care (01) ==
LOC: LABWHC1 07:22
PROVIDERS: ATTEND Surgery Plastic and Reconstructive Surgery
DX: E89.1 Postprocedural hypoinsulinemia (principal); E44.0 Moderate protein-calorie malnutrition; E55.9 Vitamin D deficiency, unspecified; E66.01 Morbid (severe) obesity due to excess calories; D50.8 Other iron deficiency anemias; K74.1 Hepatic sclerosis; N19 Unspecified kidney failure; K50.90 Crohn's disease, unspecified, without complications
CPT/HCPCS: 36415; 80053; 80061; 82306; 82525; 82607; 82728; 82746; 83036; 83540; 83550; 83735; 83970; 84100; 84134; 84255; 84425; 84443; 84590; 84630; 85027; 85610; 85730

== ENCOUNTER → 2021-05-26 | Outpatient (CLI) | payer BC ==
--- NOTE | 2021-05-26 14:31 | P.HPBAR ---
Bariatric H&P - History & Physicial H&P Date: 05/26/21 History & Physicial: Visit/CC: Patient initial contact: Initial weight: 98.611 kg Initial weight in pounds: Height: Initial BMI: Last weight: Current weight: Current weight in pounds: Current BMI: Adona body weight (based on NIH guidelines): Excess body weight loss: The patient is a 50 year-old F who presents for Bariatric Assessment. DATE OF SERVICE: 05/26/2021 CHIEF COMPLAINT: Followup sleeve gastrectomy. HISTORY OF PRESENT ILLNESS: Lisa Vázquez is a 50-year-old female, status post sleeve gastrectomy on 08/14/2015. She is 6 years out. She comes in with moderate to severe panniculitis for over 5 years. She reports troubles with grooming including lower back pain. She comes in with recurrent diabetes type II. At her height of 5 feet 2-1/4 inch frame she had weighed as much as 253 pounds. Her body mass index was 46.0. Today she comes in weighing 206 pounds from 179 pounds, 5 years ago. She has gained 27 pounds in 5 years. Her ideal body weight is 135 pounds. She has lost 47 pounds lifetime. Percent excess weight loss is 40 % lifetime. Body mass index is 37.4. PAST MEDICAL HISTORY: 1. Morbid obesity due to excess calories, BMI 46.0 2. Gastroesophageal reflux disease. 3. Dyslipidemia. 4. Hypertension. 5. Vertigo. 6. Menopause. 7. Restless leg syndrome. 8. Anxiety. 9. Obstructive sleep apnea. 10. Depressive disorder 11. Panniculitis 12. Diabetes type 2, non insulin dependent PAST SURGICAL HISTORY: 1. Uterine ablation. 2. Bilateral breast reduction. 3. Left breast lumpectomy. 4. D&C. 5. Status post sleeve gastrectomy. 6. Appendectomy MEDICATIONS: Home Medications Medication Instructions Recorded Confirmed Meclizine HCl 25 mg PO TID PRN 02/19/18 06/24/21 Venlafaxine HCl ER [Effexor XR] 225 mg PO DAILY 02/23/20 06/24/21 ALPRAZolam [Xanax] 0.25 mg PO DAILY PRN 11/25/20 06/24/21 Clotrimazole [Clotrimazole AF] 1 applic TOPICAL BID 11/25/20 06/24/21 Dulaglutide [Trulicity] 3 mg SQ Q7D 11/25/20 06/24/21 Terbinafine [LamISIL] 250 mg PO DAILY 11/25/20 06/24/21 Previous Rx's Medication Instructions Recorded Acetaminophen Tab [Tylenol Tab] 1,000 mg PO Q6HR PRN #30 tablet 11/26/20 Simethicone [Gas-X] 125 mg PO AC-TID PRN #20 capsule 11/26/20 Chlorhexidine Gluconate [Hibiclens] 1 applic TOPICAL DAILY #120 ml 05/26/21 Nystatin 100,000 Unit/gm Powd 1 applic TOPICAL BID #60 gm 05/26/21 [Mycostatin Powder] ALLERGIES: Allergies Allergy/AdvReac Type Severity Reaction Status Date / Time meperidine [From Demerol] AdvReac Unknown Verified 05/26/21 14:47 milk AdvReac CONGESTIONS, Verified 05/26/21 14:47 SINUS DRAINAGE phenazopyridine AdvReac Nausea & Verified 05/26/21 14:47 [From Pyridium] Vomiting SOCIAL HISTORY: Lifelong nontobacco user. Has intermittent alcohol use. FAMILY HISTORY: Pertinent for diabetes type 2. No reports of ulcerative colitis or Crohn disease. REVIEW OF SYSTEMS: CONSTITUTIONAL: At her height of 5 feet 2-1/4 inch frame she had weighed as much as 253 pounds. Her body mass index was 46.0. Today she comes in weighing 206 pounds from 179 pounds, 5 years ago. Her ideal body weight is 135 pounds. ENDOCRINE: Recurrent diabetes type 2. No reports of active thyroid disorder to her knowledge. GASTROINTESTINAL: History of gastroesophageal reflux disease. MUSCULOSKELETAL: Has diffuse osteoarthritis. RESPIRATORY:Has obstructive sleep apnea. No pneumonia. HEENT: No troubles with vision or hearing. CARDIOVASCULAR: History of dyslipidemia as well as hypertensive heart disease. NEURO: No reports of stroke or seizure disorder. PSYCH: History of anxiety including depression. HEMATOLOGIC: No personal history of deep venous thromboembolic event. SKIN: Has panniculitis. No cancer. PHYSICAL EXAM: VITAL SIGNS: 5 feet 2-1/4 inch, 179 pounds, BMI 37.4 Vital Signs Temp 98.3 F 05/26/21 14:44 Pulse 76 05/26/21 14:44 Resp 18 05/26/21 14:44 BP 163/88 05/26/21 14:44 Pulse Ox ABDOMEN: Soft. Pannus extends over pubis 6 cm with hyperemia consistent with panniculitis. GENERAL: Well-developed, pleasant female in no acute distress. CARDIOVASCULAR: Regular rate, regular rhythm. HEENT: No scleral icterus. Extraocular muscles grossly intact. Moist buccal mucosa. NECK: Supple without lymphadenopathy. CHEST: Nonlabored respirations. MUSCULOSKELETAL: No clubbing, cyanosis, or edema. NEURO: No focal or lateralizing signs. PSYCH: Appropriate affect. Alert and oriented to person, place and time. SKIN: Well perfused, good skin turgor. LABS: Reviewed. Hgb A1c elevated 7.5%. Triglycerides elevated. Vitamin D low. ASSESSMENT: 1. Morbid obesity due to excess calories. 2. Body mass index reduced from 46.0 down to 37.4. 3. Diabetes type 2, [id number], recurrent 4. Chronic constipation. 5. Panniculitis. 6. Obstructive sleep apnea 7. Hypertensive heart disease without congestive heart failure. 8. Osteoarthritis of the bilateral knees secondary to morbid obesity. 9. Osteoarthritis of the lower back secondary to morbid obesity. 10. Osteoarthritis of the bilateral hips secondary to morbid obesity. 11. Medical noncompliance to dietary regimen following bariatric procedure. 12. Dietary surveillance and counseling. 13. Status post sleeve gastrectomy. 14. Hypertriglyceridemia 15. Vitamin D deficiency PLAN: 1. She has panniculitis. Recommend billing control clerk for management. 2. Nystatin prescribed. Recommend 6 months of treatment. 3. Recommend photos of pannus. 4. Labs reviewed with elevated triglyceride and low Vitamin D. 5. Recommend follow-up for weight loss maintenance. Past Medical History Past Medical History: Diabetes Mellitus, GERD/Reflux, Pneumonia, Sleep Apnea/CPAP/BIPAP Additional Past Medical History / Comment(s): SEIZURE X1 ([employer]), PCOS. , Vertigo, RLS. ,does not use BI PAP MACHINE, diverticulitis. History of Any Multi-Drug Resistant Organisms: None Reported Past Surgical History: Bariatric Surgery, Breast Surgery, Uterine Ablation Additional Past Surgical History / Comment(s): Breast Reduction; Lump Removed from LT breast, BENIGN. D&C., COLONOSCOPY, EGD (05/2015). Gastric Sleeve 08/15/15 Past Anesthesia/Blood Transfusion Reactions: Previous Problems w/ Anesthesia, Family History of Problems w/ Anesthesia, Motion Sickness Additional Past Anesthesia/Blood Transfusion Reaction / Comm: Takes a long time to come of anesthesia X1 with breast reduction surgery. (REFUSES BLOOD PRODUCTS)-personal preference. DTR has PONV Past Psychological History: Anxiety, Depression Additional Psychological History / Comment(s): HX OF DEPRESSION POST . Smoking Status: Never smoker Past Alcohol Use History: Occasional Past Drug Use History: None Reported - Past Family History Mother Additional Family Medical History / Comment(s): Benign tumor in uterus, removed. Father Family Medical History: Cancer, CVA/TIA, Diabetes Mellitus Additional Family Medical History / Comment(s): leukemia of spleen, hemchromatosis (to much iron in blood), neuropathy, back surgery fushions. MELANOMA. Bariatric Checklist Checklist: Plan: Checklist: EGD: 1. Hiatal hernia: 2. H. Pylori: HgbA1c: Vitamin D: Smoking: Never smoker Primary care physician referral: DR OAKES Psychiatry clearance: Cardiology clearance: Sleep study: Diet journal: VTE risk score: VTE risk level: Rehab needs at discharge:
[2021-05-26 14:47] VITALS: BP 163/88; PULSE 76; RESP 18; TEMP 98.3; BMI 37.3
== END ==
LOC: BARWHC3 13:26
PROVIDERS: ATTEND Surgery Plastic and Reconstructive Surgery
DX: E66.01 Morbid (severe) obesity due to excess calories (principal); K21.9 Gastro-esophageal reflux disease without esophagitis; E78.5 Hyperlipidemia, unspecified; I10 Essential (primary) hypertension; R42 Dizziness and giddiness; G25.81 Restless legs syndrome; Z78.0 Asymptomatic menopausal state; F41.9 Anxiety disorder, unspecified; G47.33 Obstructive sleep apnea (adult) (pediatric); F32.A Depression, unspecified; M79.3 Panniculitis, unspecified; E11.9 Type 2 diabetes mellitus without complications; Z98.84 Bariatric surgery status; Z91.011 Allergy to milk products; Z88.5 Allergy status to narcotic agent; F17.200 Nicotine dependence, unspecified, uncomplicated
CPT/HCPCS: 99211

== ENCOUNTER → 2021-06-23 | Outpatient (CLI) | payer BC ==
--- NOTE | 2021-06-23 15:18 | P.BASOAP ---
Subjective Progress Note Date: 06/23/21 DATE OF SERVICE: 06/23/2021 CHIEF COMPLAINT: Followup sleeve gastrectomy. HISTORY OF PRESENT ILLNESS: Lisa Vázquez is a 50-year-old female, status post sleeve gastrectomy on 08/14/2015. She is 6 years out. She comes in with panniculitis. Her lowest weight is 170 pounds. She is seeing a mounted police officer for management of her panniculitis. She reports troubles with grooming and lower back as a result of her pannus. At her height of 5 feet 2-1/4 inch frame she had weighed as much as 253 pounds. Her body mass index was 46.0. Today she comes in weighing 204 pounds from 206 pounds, 1 month ago. She has lost 1 pound in 1 month. Her ideal body weight is 135 pounds. She has lost 49 pounds lifetime. Percent excess weight loss is 42 % lifetime. Body mass index is 37.0. PHYSICAL EXAM: VITAL SIGNS: 5 feet 2-1/4 inch, 204 pounds, BMI 37.0 Vital Signs Temp 97.6 F 06/23/21 15:22 Pulse 86 06/23/21 15:22 Resp 16 06/23/21 15:22 BP 149/89 06/23/21 15:22 Pulse Ox ABDOMEN: Soft. Panniculitis present with grade 3 panniculosis GENERAL: Well-developed, pleasant female in no acute distress. CARDIOVASCULAR: Regular rate, regular rhythm. HEENT: No scleral icterus. Extraocular muscles grossly intact. Moist buccal mucosa. NECK: Supple without lymphadenopathy. CHEST: Nonlabored respirations. MUSCULOSKELETAL: No clubbing, cyanosis, or edema. NEURO: No focal or lateralizing signs. PSYCH: Appropriate affect. Alert and oriented to person, place and time. SKIN: Well perfused, good skin turgor. ASSESSMENT: 1. Morbid obesity due to excess calories. 2. Body mass index reduced from 46.0 down to 37.0. 3. Diabetes type 2, [id number], recurrent 4. Chronic constipation. 5. Panniculitis. 6. Obstructive sleep apnea 7. Hypertensive heart disease without congestive heart failure. 8. Osteoarthritis of the bilateral knees secondary to morbid obesity. 9. Osteoarthritis of the lower back secondary to morbid obesity. 10. Osteoarthritis of the bilateral hips secondary to morbid obesity. 11. Medical noncompliance to dietary regimen following bariatric procedure. 12. Dietary surveillance and counseling. 13. Status post sleeve gastrectomy. 14. Hypertriglyceridemia 15. Vitamin D deficiency PLAN: 1. Continue Nystatin for panniculitis. 2. Weight loss management described. Assessment/Plan Plan: Date: Initial Weight: 98.611 kg Initial BMI: Current Weight: Current BMI: Type of Surgery: Total Volume in Band: Previous Volume: Volume Removed: Volume Added: Band Size:
[2021-06-23 15:24] VITALS: BP 149/89; PULSE 86; RESP 16; TEMP 97.6; BMI 37.0
== END ==
LOC: BARWHC3 14:59
PROVIDERS: ATTEND Surgery Plastic and Reconstructive Surgery
DX: E66.01 Morbid (severe) obesity due to excess calories (principal); Z68.37 Body mass index [BMI] 37.0-37.9, adult; E11.9 Type 2 diabetes mellitus without complications; K59.09 Other constipation; M79.3 Panniculitis, unspecified; G47.33 Obstructive sleep apnea (adult) (pediatric); I11.9 Hypertensive heart disease without heart failure; M17.0 Bilateral primary osteoarthritis of knee; M47.9 Spondylosis, unspecified; M16.0 Bilateral primary osteoarthritis of hip; Z71.3 Dietary counseling and surveillance; Z98.84 Bariatric surgery status; E78.1 Pure hyperglyceridemia; E55.9 Vitamin D deficiency, unspecified; Z91.011 Allergy to milk products; Z88.5 Allergy status to narcotic agent; Z88.6 Allergy status to analgesic agent
CPT/HCPCS: 99211

== ENCOUNTER → 2022-01-07 | Outpatient (CLI) | payer BC ==
[2022-01-07 11:12] LABS: Basophils # (A) 0.05 X 10*3/uL (0.00-0.10); Basophils % (A) 0.9 %; Eosinophils # (A) 0.04 X 10*3/uL (0.04-0.35); Eosinophils % (A) 0.7 %; HGB 15.8 g/dL (12.0-15.0); Immature Grans, Automated 0.2 %; Lymphocytes % (A) 52.2 %; MCH 31.8 pg (27.0-32.0); MCHC 33.6 g/dL (32.0-37.0); MCV 94.6 fL (80.0-97.0); Mean Platelet Volume 11.7 fL (9.5-12.2); Monocytes # (A) 0.42 X 10*3/uL (0.20-1.00); Monocytes % (A) 7.8 %; NRBC Per 100 WBC 0 /100 WBCS (0.0-0.0); Neutrophils # (A) 2.04 X 10*3/uL (1.80-7.70); Neutrophils % (A) 38.2 %; Platelet Count 215 X 10*3/uL (140-440); RBC 4.97 X 10*6/uL (4.10-5.20); RDW 12.3 % (11.5-14.5); WBC 5.36 X 10*3/uL (4.50-10.00)
[2022-01-07 11:59] LABS: ALT 28 U/L (8-44); AST 24 U/L (13-35); African American GFR (CKD) 85.8 (60.0-200.0); Albumin 4.6 g/dL (3.8-4.9); Albumin/Globulin Ratio 2.09 (1.60-3.17); Alkaline Phosphatase 87 U/L (41-126); BUN/Creat Ratio 12.89 Ratio (12.00-20.00); Blood Urea Nitrogen 11.6 mg/dL (9.0-27.0); Calcium 9.8 mg/dL (8.7-10.3); Carbon Dioxide 29.4 mmol/L (20.0-27.5); Chloride 102 mmol/L (96-109); Chol/HDL Ratio 3.82 Ratio; Globulin 2.2 g/dL (1.6-3.3); Glucose 109 mg/dL (70-110); LDL Cholesterol,Calculated 118.1 mg/dL (0.0-131.0); Potassium 5.2 mmol/L (3.5-5.5); Sodium 141 mmol/L (135-145); Total Protein 6.8 g/dL (6.2-8.2)
== END | disposition home or self-care (01) ==
LOC: LABWHC1 07:12
PROVIDERS: ATTEND Family Medicine
DX: Z00.00 Encounter for general adult medical examination without abnormal findings (principal)
CPT/HCPCS: 36415; 80053; 80061; 84443; 85025

== ENCOUNTER → 2022-01-14 | Outpatient (CLI) | payer BC ==
[2022-01-14 14:02] LABS: INR 0.9 (<1.2); Partial Thromboplastin Time 23.1 sec (22.0-30.0)
[2022-01-14 17:45] LABS: HCT 45.3 % (37.2-46.3); HGB 15.6 g/dL (12.0-15.0); MCHC 34.4 g/dL (32.0-37.0); MCV 92.8 fL (80.0-97.0); Mean Platelet Volume 11.7 fL (9.5-12.2); NRBC Per 100 WBC 0 /100 WBCS (0.0-0.0); Platelet Count 215 X 10*3/uL (140-440); RBC 4.88 X 10*6/uL (4.10-5.20); RDW 12.1 % (11.5-14.5); WBC 5.67 X 10*3/uL (4.50-10.00)
[2022-01-14 18:41] LABS: Chol/HDL Ratio 3.93 Ratio; LDL Cholesterol,Calculated 101.6 mg/dL (0.0-131.0); Prealbumin 24.9 mg/dL (18.0-42.0)
[2022-01-14 20:51] LABS: Ferritin 41.8 ng/mL (10.0-291.0); Iron 97 ug/dL (50-170); Magnesium 2.2 mg/dL (1.5-2.4); Phosphorus 4.7 mg/dL (2.4-5.1)
[2022-01-14 20:57] LABS: ALT 32 U/L (8-44); AST 26 U/L (13-35); African American GFR (CKD) 74.6 (60.0-200.0); Albumin 4.5 g/dL (3.8-4.9); Albumin/Globulin Ratio 2.03 (1.60-3.17); Alkaline Phosphatase 83 U/L (41-126); BUN/Creat Ratio 11.58 Ratio (12.00-20.00); Blood Urea Nitrogen 11.7 mg/dL (9.0-27.0); Calcium 9.2 mg/dL (8.7-10.3); Chloride 106 mmol/L (96-109); Globulin 2.2 g/dL (1.6-3.3); Glucose 141 mg/dL (70-110); Non-African American GFR(CKD) 64.4 (60.0-200.0); Potassium 4.4 mmol/L (3.5-5.5); Sodium 146 mmol/L (135-145); Total Iron Binding Capacity 368 ug/dL (228-460); Total Protein 6.7 g/dL (6.2-8.2)
== END | disposition home or self-care (01) ==
LOC: LABPAT 13:08
PROVIDERS: ATTEND Surgery Plastic and Reconstructive Surgery
DX: E66.01 Morbid (severe) obesity due to excess calories (principal); E89.1 Postprocedural hypoinsulinemia; D50.8 Other iron deficiency anemias; E44.0 Moderate protein-calorie malnutrition; E55.9 Vitamin D deficiency, unspecified; K74.1 Hepatic sclerosis; N19 Unspecified kidney failure; T56.894A Toxic effect of other metals, undetermined, initial encounter; K50.90 Crohn's disease, unspecified, without complications
CPT/HCPCS: 80053; 80061; 82306; 82525; 82607; 82728; 82746; 83036; 83540; 83550; 83735; 83970; 84100; 84134; 84255; 84425; 84443; 84590; 84630; 85027; 85610; 85730

== ENCOUNTER 2022-03-15 07:47 | Day surgery (SDC) | payer BC ==
[~2022-03-15 07:47] MED LIST changes: -HYDROmorphone 1 MG/ML 1 ML SYRINGE IVP PRN; +LIDOCAINE 1% (10MG/ML) FOR IV START INTRADERMA PRN
[2022-03-15] MEDS ORDERED: LACTATED RINGERS 1,000 ML IV ONE (08:03)
[2022-03-15 08:13] VITALS: TEMP 97.8
[2022-03-15 08:15] LABS: Glucose,Whole Blood 125 mg/dL (70-110)
[2022-03-15] MEDS ORDERED: ONDANSETRON 4 MG/2 ML VIAL ONE (08:16)
[2022-03-15] MEDS ORDERED: PROPOFOL 10 MG/ML 20 ML VIAL IV ONE (08:50)
--- NOTE | 2022-03-15 09:22 | P.PCN ---
Date of Procedure: 03/15/22 Procedure(s) Performed: BRIEF HISTORY: Patient is a 51-year-old pleasant white female scheduled for an elective colonoscopy as a part of evaluation of prior history of colon polyps. Her last colonoscopy was 5 years ago. PROCEDURE PERFORMED: Colonoscopy with biopsy . PREOPERATIVE DIAGNOSIS: History of colon polyps IV sedation per Anesthesia. PROCEDURE: After informed consent was obtained, the patient, was brought into the endoscopy unit. IV sedation was administered by Anesthesia under continuous monitoring. Digital rectal examination was normal. Initially the Olympus CF-160 flexible video colonoscope was then inserted in the rectum, gradually advanced into the cecum without any difficulty. Careful examination was performed as the scope was gradually being withdrawn. Ileocecal valve and the appendiceal orifice were visualized and appeared normal. Prep was excellent. Mucosa of the cecum, ascending colon, appeared normal. The transverse colon there was a 4-5 mm sessile polyp removed by cold biopsy. Rest of the transverse colon, descending colon, sigmoid colon, and rectum appeared normal. Retroflexion was performed in the rectum and no lesions were seen. The patient tolerated the procedure well. IMPRESSION: 4-5 mm sessile transverse colon polyp status post cold biopsy Rest of the colon appeared normal RECOMMENDATIONS: Findings of this examination were discussed with the patient as well as his family. She was advised to follow with the biopsy results. If the biopsy reveals adenoma she can have a repeat colonoscopy in 5 years..
[2022-03-15 09:24] VITALS: RESP 16
[2022-03-15 09:41] VITALS: BP 117/78; PULSE 76
== END 2022-03-15 10:03 | disposition home or self-care (01) ==
LOC: ORWHC2ENDO 07:47
PROVIDERS: ATTEND Internal Medicine Gastroenterology
DX: Z12.11 Encounter for screening for malignant neoplasm of colon (principal); D12.3 Benign neoplasm of transverse colon; F41.8 Other specified anxiety disorders; G47.33 Obstructive sleep apnea (adult) (pediatric); E11.9 Type 2 diabetes mellitus without complications; G40.909 Epilepsy, unspecified, not intractable, without status epilepticus; K21.9 Gastro-esophageal reflux disease without esophagitis; Z79.899 Other long term (current) drug therapy; Z88.8 Allergy status to other drugs, medicaments and biological substances; Z99.89 Dependence on other enabling machines and devices; Z91.011 Allergy to milk products
CPT/HCPCS: 88305; 45380; J2405; J2704

== ENCOUNTER → 2022-05-04 | Outpatient (CLI) | payer BC ==
--- NOTE | 2022-05-04 17:23 | CT ---
EXAMINATION TYPE: CT abdomen pelvis wo con CT DLP: 1175 mGycm, Automated exposure control for dose reduction was used. DATE OF EXAM: 05/04/2022 4:54 PM COMPARISON: CT abdomen pelvis most recent from 11/25/2020 CLINICAL INDICATION:Female, 51 years old with history of R10.32 LEFT LOWER QUAD PAIN; mid abdominal p ain. hx of diverticulitis TECHNIQUE: Axial CT of the abdomen and pelvis. Sagittal and coronal reformats were created on a [employer] workstation. Contrast used: None Oral contrast used: without Oral Contrast FINDINGS: LOWER CHEST: Unremarkable ABDOMEN LIVER: Diffusely hypoattenuating parenchyma. GALLBLADDER AND BILE DUCTS: Unremarkable. PANCREAS: Unremarkable. SPLEEN: Unremarkable. ADRENAL GLANDS: Unremarkable. KIDNEYS AND URETERS: No evidence of hydronephrosis or renal calculus. The ureters are unremarkable. PELVIS BLADDER: Unremarkable REPRODUCTIVE: Right ovarian cyst measuring 4.2 cm. ABDOMEN & PELVIS STOMACH AND BOWEL: Fat stranding changes are seen on the loop of bowel in the lower quadrant. Some of inflammation changes around diverticula. No evidence of bowel obstruction. Postsurgical changes to t he gastric lumen consistent with gastric sleeve. Scattered clonic diverticula present. Circumferentia l Wall thickening up to 11 mm is present. r this bowel extends approximately 8 cm in length. PERITONEUM/RETROPERITONEUM: No evidence of pneumoperitoneum or free fluid. . VASCULATURE: No evidence of aortic aneurysm. MUSCULOSKELETAL: No acute osseous abnormalities LYMPH NODES: No gross evidence for lymphadenopathy. SOFT TISSUE/ABDOMINAL WALL: Unremarkable IMPRESSION: 1. Acute uncomplicated diverticulitis/colitis involving sigmoid colon. No organizing fluid collectio n or evidence for perforation. 2. Right ovarian cyst measuring up to 4.2 cm. 3. Hepatic steatosis.
== END | disposition home or self-care (01) ==
LOC: RADCTMAIN 16:39
PROVIDERS: ATTEND Family Medicine
DX: N83.201 Unspecified ovarian cyst, right side (principal); K76.0 Fatty (change of) liver, not elsewhere classified
CPT/HCPCS: 74176

== ENCOUNTER → 2022-05-04 | Outpatient (CLI) | payer BC ==
[2022-05-04 23:48] LABS: HGB 15.9 g/dL (12.0-15.0); MCH 31.1 pg (27.0-32.0); MCHC 32.4 g/dL (32.0-37.0); MCV 95.9 fL (80.0-97.0); Mean Platelet Volume 11.5 fL (9.5-12.2); NRBC Per 100 WBC 0 /100 WBCS (0.0-0.0); Platelet Count 293 X 10*3/uL (140-440); RBC 5.11 X 10*6/uL (4.10-5.20)
[2022-05-05 00:57] LABS: African American GFR (CKD) 101.1 (60.0-200.0); Albumin 4.7 g/dL (3.8-4.9); Albumin/Globulin Ratio 2.01 (1.60-3.17); Anion Gap 13.6 mmol/L (10.00-18.00); BUN/Creat Ratio 20.23 Ratio (12.00-20.00); Blood Urea Nitrogen 15.9 mg/dL (9.0-27.0); Calcium 9.9 mg/dL (8.7-10.3); Carbon Dioxide 26.7 mmol/L (20.0-27.5); Globulin 2.4 g/dL (1.6-3.3); Non-African American GFR(CKD) 87.2 (60.0-200.0); Potassium 4.6 mmol/L (3.5-5.5); Total Bilirubin 0.4 mg/dL (0.30-1.20); Total Protein 7.1 g/dL (6.2-8.2)
== END | disposition home or self-care (01) ==
LOC: LABWHC1 16:33
PROVIDERS: ATTEND Physician Assistant
DX: R10.32 Left lower quadrant pain (principal)
CPT/HCPCS: 36415; 80053; 82150; 83690; 85027

== ENCOUNTER → 2022-05-18 | Outpatient (CLI) | payer BC ==
[2022-05-18 19:23] LABS: Basophils # (A) 0.07 X 10*3/uL (0.00-0.10); Basophils % (A) 0.9 %; Eosinophils # (A) 0.09 X 10*3/uL (0.04-0.35); Eosinophils % (A) 1.1 %; HCT 46.7 % (37.2-46.3); HGB 15.2 g/dL (12.0-15.0); Immature Grans, Automated 0.5 %; Lymphocytes # (A) 3.28 X 10*3/uL (0.90-5.00); Lymphocytes % (A) 40.9 %; MCH 31.1 pg (27.0-32.0); MCHC 32.5 g/dL (32.0-37.0); MCV 95.7 fL (80.0-97.0); Mean Platelet Volume 11.4 fL (9.5-12.2); Monocytes # (A) 0.49 X 10*3/uL (0.20-1.00); Monocytes % (A) 6.1 %; NRBC Per 100 WBC 0 /100 WBCS (0.0-0.0); Neutrophils # (A) 4.04 X 10*3/uL (1.80-7.70); Neutrophils % (A) 50.5 %; Platelet Count 297 X 10*3/uL (140-440); RBC 4.88 X 10*6/uL (4.10-5.20); RDW 12.6 % (11.5-14.5); WBC 8.01 X 10*3/uL (4.50-10.00)
[2022-05-18 19:33] LABS: African American GFR (CKD) 118.3 (60.0-200.0); Albumin 4.4 g/dL (3.8-4.9); Albumin/Globulin Ratio 1.75 (1.60-3.17); Anion Gap 12.7 mmol/L (10.00-18.00); BUN/Creat Ratio 29.22 Ratio (12.00-20.00); Blood Urea Nitrogen 19.4 mg/dL (9.0-27.0); Calcium 9.9 mg/dL (8.7-10.3); Carbon Dioxide 25.7 mmol/L (20.0-27.5); Globulin 2.5 g/dL (1.6-3.3); Non-African American GFR(CKD) 102.1 (60.0-200.0); Potassium 4.2 mmol/L (3.5-5.5); Total Bilirubin 0.3 mg/dL (0.30-1.20)
== END | disposition home or self-care (01) ==
LOC: LABPAT 13:44
PROVIDERS: ATTEND Surgery Plastic and Reconstructive Surgery
DX: Z01.818 Encounter for other preprocedural examination (principal)
CPT/HCPCS: 36415; 80053; 85025; 93005

== ENCOUNTER → 2022-05-18 | Outpatient (CLI) | payer BC ==
[2022-05-18 14:59] VITALS: BP 132/82; PULSE 90; TEMP 98.3; BMI 34.1
--- NOTE | 2022-05-18 15:33 | P.BASOAP ---
Subjective Progress Note Date: 05/18/22 Patient approved for panniculectomy. High-protein low-carb diet advised. Patient reports backorder of her diabetic medications. Hemoglobin A1c last checked of 7.1%. Expectation postop includes an close weekly follow-up for wound checks. Placement of drains described. High-protein diet at least 75-80 g daily advised. Pain management nonnarcotic reviewed. Objective - Vital Signs Vital signs: Vital Signs Temp 98.3 F 05/18/22 14:49 Pulse 90 05/18/22 14:49 Resp BP 132/82 05/18/22 14:49 Pulse Ox FiO2 Intake & Output 05/17/22 05/18/22 05/18/22 18:59 06:59 18:59 Weight 85.275 kg Assessment/Plan Plan: Date: 05/18/22 Initial Weight: 98.611 kg Initial BMI: 39.4 Current Weight: 85.275 kg Current BMI: 34.1 Type of Surgery: Total Volume in Band: Previous Volume: Volume Removed: Volume Added: Band Size:
== END ==
LOC: BARWHC3 14:09
PROVIDERS: ATTEND Surgery Plastic and Reconstructive Surgery
DX: E66.01 Morbid (severe) obesity due to excess calories (principal); Z68.34 Body mass index [BMI] 34.0-34.9, adult; Z91.011 Allergy to milk products; Z88.8 Allergy status to other drugs, medicaments and biological substances; Z88.5 Allergy status to narcotic agent
CPT/HCPCS: 99211

== ENCOUNTER → 2022-07-01 | Outpatient (CLI) | payer BC ==
[2022-07-01 09:45] VITALS: BP 128/83; PULSE 106; TEMP 98.6; BMI 31.3
--- NOTE | 2022-07-01 11:42 | P.BASOAP ---
Subjective Progress Note Date: 07/01/22 DATE OF SERVICE: 07/01/2022 CHIEF COMPLAINT: Followup panniculectomy HISTORY OF PRESENT ILLNESS: Lisa Vázquez is a 51-year-old female, status post sleeve gastrectomy on 08/14/2015. She is 7 years out. She is status post panniculectomy with 9 pounds resection, 06/28/2022. She is post-operative day 3. Her pain is well controlled. She is tolerating diet. At her height of 5 feet 2-1/4 inch frame she had weighed as much as 253 pounds. Her body mass index was 46.0. Today she comes in weighing 172 pounds from 204 pounds, 1 year ago. She has lost 31 pounds in 1 year. Her ideal body weight is 135 pounds. She has lost 81 pounds lifetime. Percent excess weight loss is 68 % lifetime. Body mass index is 31.3 PHYSICAL EXAM: VITAL SIGNS: 5 feet 2-1/4 inch, 172 pounds, BMI 31.3 Vital Signs Temp 98.6 F 07/01/22 09:15 Pulse 106 H 07/01/22 09:15 Resp BP 128/83 07/01/22 09:15 Pulse Ox FiO2 ABDOMEN: Abdominal binder re-fashioned. Abdominal wall flaps completely viable and sensate. PHIL serosanguineous. Outputs less than 100 mL daily. All dressings clean dry and intact. GENERAL: Well-developed, pleasant female in no acute distress. CARDIOVASCULAR: Distal 2+ pulses. HEENT: No scleral icterus. Extraocular muscles grossly intact. Moist buccal mucosa. NECK: Supple without lymphadenopathy. CHEST: Nonlabored respirations. MUSCULOSKELETAL: No clubbing, cyanosis, or edema. NEURO: No focal or lateralizing signs. PSYCH: Appropriate affect. Alert and oriented to person, place and time. SKIN: Well perfused, good skin turgor. ASSESSMENT: 1. Morbid obesity due to excess calories. 2. Body mass index reduced from 46.0 down to 31.3 3. Diabetes type 2, [id number], recurrent 4. Chronic constipation. 5. Panniculitis. 6. Obstructive sleep apnea 7. Hypertensive heart disease without congestive heart failure. 8. Osteoarthritis of the bilateral knees secondary to morbid obesity. 9. Osteoarthritis of the lower back secondary to morbid obesity. 10. Osteoarthritis of the bilateral hips secondary to morbid obesity. 11. Medical noncompliance to dietary regimen following bariatric procedure. 12. Dietary surveillance and counseling. 13. Status post sleeve gastrectomy. 14. Hypertriglyceridemia 15. Vitamin D deficiency 16. Status post panniculectomy, 9 pound resection. PLAN: 1. Additional padding placed on the bilateral hips to decrease risk of irritation. 2. Recommend follow-up weekly. 3. Questions addressed to avoid wound healing creams and silicone tape. Objective - Vital Signs Vital signs: Vital Signs Temp 98.6 F 07/01/22 09:15 Pulse 106 H 07/01/22 09:15 Resp BP 128/83 07/01/22 09:15 Pulse Ox FiO2 Intake & Output 06/30/22 07/01/22 07/01/22 18:59 06:59 18:59 Weight 78.335 kg Assessment/Plan Plan: Date: 07/01/22 Initial Weight: 98.611 kg Initial BMI: 39.4 Current Weight: 78.335 kg Current BMI: 31.3 Type of Surgery: Total Volume in Band: Previous Volume: Volume Removed: Volume Added: Band Size:
== END ==
LOC: BARWHC3 08:51
PROVIDERS: ATTEND Surgery Plastic and Reconstructive Surgery
DX: E66.01 Morbid (severe) obesity due to excess calories (principal); E11.9 Type 2 diabetes mellitus without complications; G47.33 Obstructive sleep apnea (adult) (pediatric); I11.0 Hypertensive heart disease with heart failure; K59.00 Constipation, unspecified; E55.9 Vitamin D deficiency, unspecified; E78.1 Pure hyperglyceridemia; M79.3 Panniculitis, unspecified; Z68.31 Body mass index [BMI] 31.0-31.9, adult; Z91.011 Allergy to milk products; Z88.5 Allergy status to narcotic agent; Z88.8 Allergy status to other drugs, medicaments and biological substances
CPT/HCPCS: 99212

== ENCOUNTER → 2022-07-06 | Outpatient (CLI) | payer BC ==
[2022-07-06 14:10] VITALS: BP 120/81; PULSE 98; TEMP 97.8; BMI 30.8
--- NOTE | 2022-07-06 16:00 | P.BASOAP ---
Subjective Progress Note Date: 07/06/22 her left drain is dark. Output is 20 mL daily. External dressing removed. Follow up in 1 week. Objective - Vital Signs Vital signs: Vital Signs Temp 97.8 F 07/06/22 14:02 Pulse 98 07/06/22 14:02 Resp BP 120/81 07/06/22 14:02 Pulse Ox FiO2 Intake & Output 07/05/22 07/06/22 07/06/22 18:59 06:59 18:59 Weight 77.111 kg Assessment/Plan Plan: Date: 07/06/22 Initial Weight: 98.611 kg Initial BMI: 39.4 Current Weight: 77.111 kg Current BMI: 30.8 Type of Surgery: Total Volume in Band: Previous Volume: Volume Removed: Volume Added: Band Size:
== END ==
LOC: BARWHC3 13:42
PROVIDERS: ATTEND Surgery Plastic and Reconstructive Surgery
DX: E66.01 Morbid (severe) obesity due to excess calories (principal); Z68.30 Body mass index [BMI] 30.0-30.9, adult; Z88.8 Allergy status to other drugs, medicaments and biological substances; Z91.011 Allergy to milk products
CPT/HCPCS: 99212

== ENCOUNTER → 2022-07-13 | Outpatient (CLI) | payer BC ==
[2022-07-13 14:56] VITALS: BP 135/85; PULSE 86; TEMP 98.2; BMI 30.4
--- NOTE | 2022-07-13 15:33 | P.BASOAP ---
Subjective Progress Note Date: 07/13/22 Removed all drains and dressing. All looks good. New binder and wear tight and right! FU weekly. Wound care reviewed. Objective - Vital Signs Vital signs: Vital Signs Temp 98.2 F 07/13/22 14:49 Pulse 86 07/13/22 14:49 Resp BP 135/85 07/13/22 14:49 Pulse Ox FiO2 Intake & Output 07/12/22 07/13/22 07/13/22 18:59 06:59 18:59 Weight 76.204 kg Assessment/Plan Plan: Date: 07/13/22 Initial Weight: 98.611 kg Initial BMI: 39.4 Current Weight: 76.204 kg Current BMI: 30.4 Type of Surgery: Total Volume in Band: Previous Volume: Volume Removed: Volume Added: Band Size:
== END ==
LOC: BARWHC3 13:30
PROVIDERS: ATTEND Surgery Plastic and Reconstructive Surgery
DX: E66.01 Morbid (severe) obesity due to excess calories (principal); Z68.30 Body mass index [BMI] 30.0-30.9, adult; Z91.011 Allergy to milk products; Z88.6 Allergy status to analgesic agent; Z88.1 Allergy status to other antibiotic agents
CPT/HCPCS: 99212

== ENCOUNTER → 2022-08-10 | Outpatient (CLI) | payer BC ==
[2022-08-10 13:26] VITALS: BP 137/90; PULSE 81; TEMP 98; BMI 30.4
--- NOTE | 2022-08-10 14:31 | P.BASOAP ---
Subjective Progress Note Date: 08/10/22 She looks great! Profile looking good. Her weight is excellent. Recommend ultrasound of the left flank. Okay to shower, chiropractor ok. She is trying to sleep on her belly. Okay for injections. Blood sugars are excellent. Recommend stop omeprazole Objective - Vital Signs Vital signs: Vital Signs Temp 98 F 08/10/22 13:23 Pulse 81 08/10/22 13:23 Resp BP 137/90 08/10/22 13:23 Pulse Ox FiO2 Intake & Output 08/09/22 08/10/22 08/10/22 18:59 06:59 18:59 Weight 76.204 kg Assessment/Plan Plan: Date: 08/10/22 Initial Weight: 98.611 kg Initial BMI: 39.4 Current Weight: 76.204 kg Current BMI: 30.4 Type of Surgery: Total Volume in Band: Previous Volume: Volume Removed: Volume Added: Band Size:
--- NOTE | 2022-08-10 14:32 | P.PN ---
Progress Note - Text Progress Note Date: 08/10/22 To whom it may concern: Lisa Vázquez is under my surgical care. She may return to work August 22, 2022 without restrictions. Regards, Nurys Crump MD, FACS
== END ==
LOC: BARWHC3 12:47
PROVIDERS: ATTEND Surgery Plastic and Reconstructive Surgery
DX: E66.01 Morbid (severe) obesity due to excess calories (principal); Z68.30 Body mass index [BMI] 30.0-30.9, adult; Z88.5 Allergy status to narcotic agent; Z91.011 Allergy to milk products; Z88.8 Allergy status to other drugs, medicaments and biological substances
CPT/HCPCS: 99211

== ENCOUNTER 2022-08-30 12:26 | Day surgery (SDC) | payer BC ==
[2022-08-30 12:52] VITALS: BP 126/77; PULSE 68; RESP 18; TEMP 97.7
--- NOTE | 2022-08-30 14:24 | US ---
EXAMINATION TYPE: US abdomen limited DATE OF EXAM: 08/30/2022 COMPARISON: NONE CLINICAL INDICATION: Female, 52 years old with history of L76.34; Findings: There is only a small 2 cm x 1.2 cm fluid collection. Percutaneous aspiration not performed due to sm all amount of fluid. IMPRESSION: There is only a very small fluid collection measuring 2 x 1.2 cm.
== END 2022-08-30 13:30 | disposition home or self-care (01) ==
LOC: RADPROMAIN 12:26
PROVIDERS: ATTEND Surgery Plastic and Reconstructive Surgery
DX: Z53.9 Procedure and treatment not carried out, unspecified reason (principal); L76.34 Postprocedural seroma of skin and subcutaneous tissue following other procedure
CPT/HCPCS: 76705

== ENCOUNTER → 2024-08-01 | Outpatient (CLI) | payer BC ==
--- NOTE | 2024-08-08 16:00 | XR ---
EXAMINATION TYPE: XR lumbosacral spine 5 views DATE OF EXAM: 08/01/2024 2:36 PM COMPARISON: CT 05/04/2022. CLINICAL INDICATION: Female, 54 years old with history of M54.50; PHH, pain FINDINGS: 5 lumbar type vertebral bodies. No pars interarticularis defect. Mild facet arthropathy lower lumbar spine. Accentuated lower lumbar lordosis. Mild degenerative disc disease lower thoracic and upper lum bar spine. Also mild degenerative disc disease with disc space narrowing at L5-S1. Chronic minimal an terior wedging at T12, unchanged from 05/04/2022 CT. Otherwise, vertebral body heights are preserved a nd alignment is maintained. IMPRESSION: 1. Mild degenerative disc disease lower thoracic and upper lumbar spine and also at L5-S1. 2. Some facet arthropathy lower lumbar spine. 3. Accentuated lower lumbar lordosis. 4. No vertebral compression collapse or malalignment. [facility], Workstation: [facility], 08/08/2024 3:58 PM
== END | disposition home or self-care (01) ==
LOC: RADXRMAIN 14:19
PROVIDERS: ATTEND Chiropractor
DX: M51.360 Other intervertebral disc degeneration, lumbar region with discogenic back pain only (principal); M51.34 Other intervertebral disc degeneration, thoracic region; M51.372 Other intervertebral disc degeneration, lumbosacral region with discogenic back pain and lower extremity pain; M40.56 Lordosis, unspecified, lumbar region
CPT/HCPCS: 72110